=== PATIENT | female | born 1960 | race Caucasian/White ===

== ENCOUNTER 2020-11-17 10:42 | Outpatient (CLI) | payer OTHER, SELFPAY ==
--- NOTE | ~2020-11-17 | DEXA_ITS ---
Bone Density Report Name: Cele Seth Age: 59 Sex: Female Ethnicity: White Date of : 1960 Indication: postmenopausal; height loss; cancer; hysterectomy; Referring Provider: Kingsley, Amy Carbone Study: Bone densitometry was performed. Exam Date: November 17, 2020 Accession number: [id number] Bone Density: Region BMD T-score Z-score Classification AP Spine (L2, L3, L4) 0.712 -3.3 -1.8 Osteoporosis Femoral Neck (Left) 0.641 -1.9 -0.6 Osteopenia Total Hip (Left) 0.808 -1.1 -0.1 Osteopenia Total Hip Bilateral Avg 0.800 -1.2 -0.2 Osteopenia Femoral Neck (Right) 0.607 -2.2 -0.9 Osteopenia Total Hip (Right) 0.790 -1.2 -0.3 Osteopenia World Health Organization criteria for BMD impression classify patients as: Normal (T-score at or above -1.0), Osteopenia (T-score between -1.0 and -2.5), or Osteoporosis (T-score at or below -2.5). 10-year Fracture Risk: FRAX not reported because: Some T-score for Spine Total or Hip Total or Femoral Neck at or below -2.5 Clinical Information Provided by Patient: Has used the following medications: Vitamin D, Calcium Has the following medical conditions: Cancer, Hysterectomy Patient maximum height was 62.5 Menopause Age: 51 No regular weight bearing exercise Does not regularly consume dairy products Drinks caffeinated beverages Onset of menses at age 14 Number of children 3 Impression: The patient has osteoporosis, based on the Total Spine T-score. Discussion: INCREASED RISK OF FRACTURE. BONE DENSITY IS UNDESIRABLY LOW AT ONE OR MORE SKELETAL SITES, CONSISTENT WITH POSTMENOPAUSAL OSTEOPOROSIS. This patient's lowest T-score meets the World Health Organization's (WHO) criteria for osteoporosis at one or more sites (T-score -2.5 or below). In untreated patients, the risk of osteoporotic fracture increases approximately two-fold for each 1.0 SD decrease in T-score. Low bone density is not the only risk factor for fracture; also consider factors such as patient's age, frailty or poor health, risk of falling, risk of injury, previous osteoporotic fracture, family history of osteoporosis, cigarette smoking, low body weight, etc. Not everyone with low bone mineral density has osteoporosis; osteomalacia and other metabolic bone disorders should also be considered. Patients who have osteoporosis should be evaluated for specific diseases and conditions (secondary causes) that may cause or contribute to bone loss. The [place] [employer] (AACE) and National Osteoporosis Foundation (NOF) recommend pharmacologic intervention for all postmenopausal women whose T-score is in this range. The patient should follow a healthful lifestyle (good nutrition with adequate calcium and vitamin D, and appropriate weight-bearing exercise). Follow-Up: Consider a repeat BMD
== END 2020-11-17 10:43 | disposition home or self-care (01) ==
LOC: ANHIMG 10:47
PROVIDERS: PCP Family Medicine; Visit Provider Nurse Practitioner Obstetrics & Gynecology
DX: Z78.0 Asymptomatic menopausal state (principal); M85.89 Other specified disorders of bone density and structure, multiple sites
CPT/HCPCS: 77080

== ENCOUNTER 2023-01-01 00:46 | Day surgery (SDC) | payer OTHER, SELFPAY ==
[2022-12-23 14:34] VITALS: BMI 27.5
--- NOTE | 2022-12-30 09:52 | SUR.PREOP ---
Patient called regarding upcoming procedure. Reviewed preop instructions, appointment times, and procedure prep.
[2023-01-01 09:38] VITALS: BP 144/86; PULSE 70; RESP 16; TEMP 36.2; O2SAT 99
[2023-01-01] MEDS: LACTATED RINGERS 1,000 ML 150 ML IV CONT (09:41)
--- NOTE | 2023-01-01 10:30 | PM.HPGS ---
History of Present Illness History of Present Illness Consent: Risks, benefits, and alternatives have been discussed and questions answered. Patient agrees to proceed with procedure. Chief complaint: neoplasm screening Narrative: Cele Seth is a 62 year old female here for screening colonoscopy, last one 10 years ago Review of Systems Constitutional: Constitutional: Denies headache(s) and Denies weakness Eyes: Eyes: Denies blurry vision ENT: Reports Normal hearing present, Denies headache(s) and Denies neck pain Cardiovascular: Cardiovascular: Denies chest pain and Denies dyspnea Respiratory: Respiratory: Denies dyspnea Gastrointestinal: Gastrointestinal: Reports no additional gastrointestinal complaints Genitourinary: Genitourinary: Denies dysuria Musculoskeletal: Musculoskeletal: Denies neck pain Integumentary/Breasts: Skin/Breast: Denies dry skin Neurologic: Reports Normal hearing present, Denies headache(s) and Denies weakness Psychiatric: Psychiatric: Denies anxiety Endocrine: Endocrine: Denies change in body appearance Hematologic/Lymphatic: Hematologic/Lymphatic: Denies easy bleeding Allergic/Immunologic: Allergic/Immunologic: Denies urticaria [facility] Past Medical History Medical History (Updated 01/01/23 @ 10:30 by Feliz Boyle MD) Colon cancer screening Family History Family History (System 09/24/21 @ 12:17 by Prosper Feliz) Father Family history of diabetes mellitus in first degree relative Mother Family history of diabetes mellitus in first degree relative Other Family history of cardiovascular disease Hypertension Social History Social History (System 09/24/21 @ 12:17 by Prosper Feliz) Smoking status: Never smoker Alcohol intake: current Substance use type: does not use Living arrangements: other Meds Home Medications and Allergies Home Medications Medication Instructions Recorded Confirmed Type atorvastatin 20 mg tablet 20 mg PO DAILY 12/23/22 01/01/23 History hydrochlorothiazide 12.5 mg capsule 12.5 mg PO DAILY 12/23/22 01/01/23 History Allergies Allergy/AdvReac Type Severity Reaction Status Date / Time nitrofurantoin AdvReac Dizziness Verified 01/01/23 09:36 Vital Signs Vital Signs - 24 hr 01/01/23 09:38 Temperature 97.2 F L Pulse Rate 70 Respiratory Rate 16 Blood Pressure 144/86 H Pulse Oximetry 99 Oxygen Delivery Room Air Exam Const: General: comfortable and no acute distress HENMT: Face/Nose/Sinus: Normal nares present Eyes: General: appearance normal, both eyes and all related structures Neck: Neck: no JVD Resp: Auscultation: clear to auscultation bilaterally Cardio: Rate: regular rate Rhythm: regular rhythm GI: Inspection: non-distended GI Palp: Yes Soft to palpation Skin: General skin exam: normal color Neuro: General: gait normal Speech: normal speech Extrem: General: normal to inspection Psych: Mental Status: mental status grossly normal Assessment and Plan Assessment and plan (1) Colon cancer screening: Code(s): Z12.11 - Encounter for screening for malignant neoplasm of colon Status: Acute Assessment and Plan: colonoscopy
--- NOTE | 2023-01-01 10:46 | WPDANESEPPF ---
Anes - Initial Pre Proc Eval Procedure: Operation Date: 01/01/23 11:00 Proposed Procedures p Screening Colonoscopy - Feliz Boyle MD Date/Time: 01/01/23 10:46 Surgeon: Feliz Boyle MD Pre Op Diagnosis: neoplasm screening Patient Data Age: 62 Gender: F Height: 1.55 m Weight: 63.9 kg Last Vital Signs Temp 97.2 F L 01/01/23 09:38 Pulse 70 01/01/23 09:38 Resp 16 01/01/23 09:38 BP 144/86 H 01/01/23 09:38 Pulse Ox 99 01/01/23 09:38 O2 Del Method Room Air 01/01/23 09:38 Allergies Allergy/AdvReac Type Severity Reaction Status Date / Time nitrofurantoin AdvReac Dizziness Verified 01/01/23 09:36 Home Medications Medication Instructions Recorded Confirmed Type atorvastatin 20 mg tablet 20 mg PO DAILY 12/23/22 01/01/23 History hydrochlorothiazide 12.5 mg capsule 12.5 mg PO DAILY 12/23/22 01/01/23 History Patient hx anesthesia problems: none Family hx anesthesia problems: none Results Review: All pre-operative results and documents have been reviewed as part of the pre-operative evaluation. [facility] Past Medical History Medical History (Updated 01/01/23 @ 10:30 by Feliz Boyle MD) Colon cancer screening Family History Family History (System 09/24/21 @ 12:17 by Prosper Feliz) Father Family history of diabetes mellitus in first degree relative Mother Family history of diabetes mellitus in first degree relative Other Family history of cardiovascular disease Hypertension Social History Social History (System 09/24/21 @ 12:17 by Prosper Feliz) Smoking status: Never smoker Alcohol intake: current Substance use type: does not use Living arrangements: other Anes - Eval Final PreProcedure Day of Procedure 01/01/23 10:46 Patient weight: normal Heart: regular rate and rhythm Lungs: clear to auscultation Airway: Mallampati scale class II Neurological: alert and oriented Last oral intake: >/= 8 hours ASA classification: III Emergent: no Anesthetic plan: proceed Anesthesia type and monitoring: general GIVS and standard monitoring Results Review: All pre-operative results and documents have been reviewed as part of the pre-operative evaluation. Informed Consent: The patient's anesthetic plan and its attendant risks and benefits were discussed with the patient/family/POA. Questions were solicited and answers provided to the satisfaction of the patient/family/POA.
[2023-01-01 11:05] VITALS: BP 112/57; PULSE 74; RESP 20; O2SAT 99
[2023-01-01 11:15] VITALS: BP 115/57; PULSE 66; RESP 17; O2SAT 99
[2023-01-01 11:23] VITALS: BP 124/71; PULSE 65; RESP 14; O2SAT 100
== END 2023-01-01 11:37 | disposition home or self-care (01) ==
PROVIDERS: PCP Nurse Practitioner Family; Visit Provider Internal Medicine Gastroenterology
PROC: 0DJD8ZZ Inspection of Lower Intestinal Tract, Via Natural or Artificial Opening Endoscopic (ICD-10-PCS; CPT 45378; principal; 2023-01-01 11:00)
DX: Z12.11 Encounter for screening for malignant neoplasm of colon (principal); D12.2 Benign neoplasm of ascending colon; D12.3 Benign neoplasm of transverse colon; K63.5 Polyp of colon; K64.8 Other hemorrhoids
CPT/HCPCS: 45385; 88305; J2704; J7120

== ENCOUNTER 2024-03-30 12:43 | Outpatient (CLI) | payer OTHER, SELFPAY ==
--- NOTE | ~2024-03-30 | DEXA_ITS ---
Bone Density Report Name: ROMEO DESAI Age: 63 Sex: Female Ethnicity: White Date of : 1960 Indication: osteopenia; height loss; cancer; hysterectomy; Referring Provider: MANOLO, ABDON Mckinney Study: Bone densitometry was performed. Exam Date: March 30, 2024 Accession number: [id number] Bone Density: Region BMD T-score Z-score Classification AP Spine(L1-L4) 0.683 -3.3 -1.6 Osteoporosis Femoral Neck (Left) 0.622 -2.0 -0.6 Osteopenia Total Hip (Left) 0.785 -1.3 -0.1 Osteopenia Femoral Neck (Right) 0.592 -2.3 -0.8 Osteopenia Total Hip (Right) 0.788 -1.3 -0.1 Osteopenia Total Hip Mean 0.786 -1.3 -0.1 Osteopenia World Health Organization criteria for BMD impression classify patients as: Normal (T-score at or above -1.0), Osteopenia (T-score between -1.0 and -2.5), or Osteoporosis (T-score at or below -2.5). 10-year Fracture Risk: FRAX not reported because: Some T-score for Spine Total or Hip Total or Femoral Neck at or below -2.5 Previous Exams: Region Exam Age BMD T-score BMD Change BMD Change Date g/cm2 vs Baseline vs Previous Total Hip(Left) 03/30/2024 63 0.785 -1.3 -0.023 (-2.8%) -0.023 (-2.8%) 11/17/2020 59 0.808 -1.1 Total Hip(Right) 03/30/2024 63 0.788 -1.3 -0.003 (-0.3%) -0.003 (-0.3%) 11/17/2020 59 0.790 -1.2 *Denotes significance at 95% confidence level, LSC for Total Hip = 0.027 g/cm2 # Denotes dissimilar scan types or analysis methods Clinical Information Provided by Patient: Has used the following medications: Fosamax (i.e. alendronate), Vitamin D, Calcium Has the following medical conditions: Cancer, Hysterectomy Patient maximum height was 62.5 Menopause Age: 51 Drinks caffeinated beverages Onset of menses at age 14 Number of children 3 Impression: The patient has osteoporosis, based on the Total Spine T-score. No significant bone loss was observed. Discussion: INCREASED RISK OF FRACTURE. BONE DENSITY IS UNDESIRABLY LOW AT ONE OR MORE SKELETAL SITES, CONSISTENT WITH POSTMENOPAUSAL OSTEOPOROSIS. This patient's lowest T-score meets the World Health Organization's (WHO) criteria for osteoporosis at one or more sites (T-score -2.5 or below). In untreated patients, the risk of osteoporotic fracture increases approximately two-fold for each 1.0 SD decrease in T-score. Low bone density is not the only risk factor for fracture; also consider factors such as patient's age, frailty or poor health, risk of falling, risk of injury, previous osteoporotic fracture, family history of osteoporosis, cigarette smoking, low body weight, etc. Not everyone with low bone mineral density has osteoporosis; osteomalacia and other metabolic bone disorders should also be considered. Patients who have osteoporosis should be evaluated for specific diseases and conditions (secondary causes) that may cause or contribute to bone loss. The [place] Association of Clinical Endocrinologists (AACE) and National Osteoporosis Foundation (NOF) recommend pharmacologic intervention for all postmenopausal women whose T-score is in this range. The patient should follow a healthful lifestyle (good nutrition with adequate calcium and vitamin D, and appropriate weight-bearing exercise). Follow-Up: Consider a repeat BMD and Vertebral Fracture Assessment (VFA) exam in 2 years or sooner if medically necessary, to reassess this patient's status. Reported by: LEYDI on 03/30/2024 1:28:00 PM. Reviewed, dictated and finalized at location A. [facility]
--- OUTSIDE RECORDS SUMMARY | 2024-03-30 12:53 | XMS_ITS | Data Portability ---
Author Organization MIKAL Amber ISIDRO Address [address] [place] [address] Care Team Providers Care Art Editor Name Role Phone SHAY WESTFALL Primary Care Provider Assessment No assessment recorded. Plan of Treatment Reminders Order Date Submit Date Provider Last Modified By Organization Details Last Modified Time Details Appointments ANY 15 2024 01:45P M Shay Westfall PBX INSTALLER-Yaakov Not available Not available Not available Lab HbA1c (hemoglob in A1c), blood 2022 023 [email or web address] In-Office Order, Internal Use Only DO Not Attach Compendium DO Not Attach Compendium, Do Not Delete/merge, [id number] 11/12/2022 16:44:31 TSH, ultra-sen sitive, serum 2022 023 [facility], [address], [address], [place], [address], 11/16/2022 08:21:12 CMP, serum or plasma 2022 023 [facility], [address], [address], [place], [address], 11/14/2022 21:07:53 lipid panel, serum 2022 023 [facility], [address], [place], [address], 11/14/2022 21:07:52 HbA1c (hemoglob in A1c), blood 2023 024 [email or web address] In-Office Order, Internal Use Only DO Not Attach Compendium DO Not Attach Compendium, Do Not Delete/merge, [id number] 10/02/2023 22:13:42 lipid panel, serum 2023 024 [facility], [address] [facility], [address], [place], [address], 02/10/2024 23:07:32 CMP, serum or plasma 2023 024 [facility], [address] [facility], [address], [place], [address], 02/10/2024 23:07:33 Referral gastroent erologist referral - due for screening colonosco py 2022 023 [facility], [id number], [place], [address], 04/30/2023 09:42:07 Procedures None recorded. Surgeries None recorded. Imaging US, gallbladd er 2022 023 [facility] Patient Access Centralized Scheduling, Centralized Scheduling, [address] [facility], [place], [address], 11/15/2022 01:42:12 Medication Orders lisinopri l 10 mg-hydroc hlorothia zide 12.5 mg tablet [address] [facility], [address] [place] [address], [address], 05/13/2023 09:40:20 lisinopri l 10 mg-hydroc hlorothia zide 12.5 mg tablet [address] [facility], [address] [facility] [address] [place] [address], [address], 06/25/2023 10:29:33 rosuvasta tin 20 mg tablet 2023 024 [facility] 435, [address], [address], 10/02/2023 17:46:06 Zetia 10 mg tablet 2023 024 [facility], [address] [place] [address], [address], 10/02/2023 17:46:08 polymyxin B sulfate 10,000 unit-trim ethoprim 1 mg/mL eye drops 2024 025 [facility] 435, [address] [place] [address], [address], 03/08/2024 15:54:49 amoxicill in 875 mg-potass ium clavulana te 125 mg tablet 2024 025 [place] [address], [address] [place] [address], [address], 03/08/2024 15:54:52 Systane Nighttime 94 %-3 % eye ointment 2024 025 [place] [address], [address] [place] [address], [address], 03/08/2024 15:54:52 Patient TargetsNo targets recorded. Patient Instructions Encounter Date Encounter Id Patient Instructions Last Modified By Organization Details Last Modified Time 11/12/2022 [id number] A healthy lifestyle: care instructions Not available 11/12/2022 16:44:26 05/12/2023 [id number] A healthy lifestyle: care instructions Not available 05/13/2023 09:40:45 06/24/2023 [id number] A healthy lifestyle: care instructions Not available 06/25/2023 10:30:19 03/08/2024 [id number] A healthy lifestyle: care instructions Not available 03/10/2024 15:45:46 pinkeye: care instructions Not available 03/08/2024 15:54:36 Acute Sinusitis: Care Instructions Not available 03/08/2024 15:54:36 dry eyes: care instructions Not available 03/08/2024 15:54:36 Reason for Referral Etl Manager Referral for Screening for malignant neoplasm of colon due for screening colonoscopy Referring Physician: Shay Westfall, Java Lead Developer, Encounter Date: 11/12/2022 Results Created Date Observation Date Name Description Value Unit Range Abnormal Flag Note LastModifiedBy Organization Detail LastModifiedTime 11/05/1911/08/2022 URINE CULTU RE,CO MPREH ENSIV E urine culture,comp rehensive Final report Not Available [facility] ([facility]) [address] [facility], [place], [address], 11/09/2022 00:07:21 11/05/1911/08/2022 URINE CULTU RE,CO MPREH ENSIV E result 1 Commen t Mixed uroge nital jas 3,000 Colon ies/m L Not Available [facility] ([facility]) [address] [facility], [place], [address], 11/09/2022 00:07:21 11/05/1911/04/2022 urina lysis , dipst ick Leukocytes Trace Not Available In-Offi ce Order Internal Use Only DO Not Attach Compendium DO Not Attach Compendium, Do Not Delete/merge, [id number] 11/04/2022 16:42:52 11/05/1911/04/2022 urina lysis , dipst ick Nitrite negati ve Not Available In-Office Order Internal Use Only DO Not Attach Compendium DO Not Attach Compendium, Do Not Delete/merge, [id number] 11/04/2022 16:42:52 11/05/1911/04/2022 urina lysis , dipst ick Urobilinogen .2 Not Available In-Of fice Order Internal Use Only DO Not Attach Compendium DO Not Attach Compendium, Do Not Delete/merge, [id number] 11/04/2022 16:42:52 11/05/19 23 11/04/2022 urina lysis , dipst ick Protein 30 Not Available In-Office Order Internal Use Only DO Not Attach Compendium DO Not Attach Compendium, Do Not Delete/merge, 11/04/2022 16:42:52 11/05/19 23 11/04/2022 urina lysis , dipst ick pH 6.0 Not Available In-Office Order Internal Use Only DO Not Attach Compendium DO Not Attach Compendium, Do Not Delete/merge, 11/04/2022 16:42:52 11/05/19 23 11/04/2022 urina lysis , dipst ick Blood Modera te Not Available In-Office Order Internal Use Only DO Not Attach Compendium DO Not Attach Compendium, Do Not Delete/merge, 11/04/2022 16:42:52 11/05/19 23 11/04/2022 urina lysis , dipst ick Specific [place] 1.020 Not Available In-Off ice Order Internal Use Only DO Not Attach Compendium DO Not Attach Compendium, Do Not Delete/merge, 11/04/2022 16:42:52 11/05/19 23 11/04/2022 urina lysis , dipst ick Ketone Negati ve Not Available In-Office Order Internal Use Only DO Not Attach Compendium DO Not Attach Compendium, Do Not Delete/merge, 11/04/2022 16:42:52 11/05/1911/04/2022 urina lysis , dipst ick Bilirubin Negati ve Not Available In-Office Order Internal Use Only DO Not Attach Compendium DO Not Attach Compendium, Do Not Delete/merge, 11/04/2022 16:42:52 11/05/19 23 11/04/2022 urina lysis , dipst ick Glucose Negati ve Not Available In-Office Order Internal Use Only DO Not Attach Compendium DO Not Attach Compendium, Do Not Delete/merge, 11/04/2022 16:42:52 11/05/19 23 11/04/2022 urina lysis , dipst ick Appearance Slight ly Cloudy Not Available In-Office Order Internal Use Only DO Not Attach Compendium DO Not Attach Compendium, Do Not Delete/merge, [id number] 11/04/2022 16:42:52 11/05/1911/04/2022 urina lysis , dipst ick Color Yellow Not Available In-Office Order Internal Use Only DO Not Attach Compendium DO Not Attach Compendium, Do Not Delete/merge, [id number] 11/04/2022 16:42:52 11/13/1911/12/2022 HbA1c (hemo globi n A1c), blood HbA1c Not Available In-Office Order Internal Use Only DO Not Attach Compendium DO Not Attach Compendium, Do Not Delete/merge, 11/12/2022 16:44:17 11/15/1911/14/2022 LIPID PANEL cholesterol, total 240 mg/dL 100-19 9 above high normal Not Available [facility] Department [address] [place] [address], [address], 11/14/2022 21:07:52 11/15/1911/14/2022 LIPID PANEL triglyceride s 121 mg/dL 0-149 Not Available [facility] Department [address] [place], [address], 11/14/2022 21:07:52 11/15/1911/14/2022 LIPID PANEL HDL cholesterol 47 mg/dL 40-999 Not Available [facility] Department [address] [place], [address], 11/14/2022 21:07:52 11/15/1911/14/2022 LIPID PANEL VLDL cholesterol asuncion 24 mg/dL 5-40 Not Available [facility] Department [address] [place], [address], 11/14/2022 21:07:52 11/15/1911/14/2022 LIPID PANEL LDL chol calc ([facility]) 186 mg/dL 0-99 above high normal Not Available [facility] [address] [place], [address], 11/14/2022 21:07:52 11/15/19 23 11/14/2022 COMP. METAB OLIC PANEL (14) glucose 103 mg/dL 70-99 above high normal Not Available [facility] Department [address] [place], [address], 11/14/2022 21:07:53 11/15/19 23 11/14/2022 COMP. METAB OLIC PANEL (14) BUN 24 mg/dL 8-27 Not Available [facility] Department [address] [place], [address], 11/14/2022 21:07:53 11/15/19 23 11/14/2022 COMP. METAB OLIC PANEL (14) creatinine 0.68 mg/dL 0.76-1 .27 below low normal Not Available [facility] Department [address] [place] [address], [address], 11/14/2022 21:07:53 11/15/19 23 11/14/2022 COMP. METAB OLIC PANEL (14) eGFR 98 >=60 Units for eGFR value s are mL/mi n/1.7 3 The eGFR Calcu latio n has not been valid ated for patie nts under the age of 18. If test resul ts are displ ayed for a patie nt under the age of 18, disre nando that value . Not Available [facility] Department [address] [place], [address], 11/14/2022 21:07:53 11/15/19 23 11/14/2022 COMP. METAB OLIC PANEL (14) BUN/creatini ne ratio 35 10-28 above high normal Not Available [facility] Department [address] [place], [address], 11/14/2022 21:07:53 11/15/19 23 11/14/2022 COMP. METAB OLIC PANEL (14) sodium 145 mmol/ L 134-14 4 above high normal Not Available [facility] Department [address] [place], [address], 11/14/2022 21:07:53 11/15/19 23 11/14/2022 COMP. METAB OLIC PANEL (14) potassium 4.4 mmol/ L 3.5-5. 2 Not Available [facility] [address] [place], [address], 11/14/2022 21:07:53 11/15/19 23 11/14/2022 COMP. METAB OLIC PANEL (14) chloride 106 mmol/ L 96-106 Not Available [facility] Department [address] [place], [address], 11/14/2022 21:07:53 11/15/19 23 11/14/2022 COMP. METAB OLIC PANEL (14) carbon dioxide, total 30 mmol/ L 20-29 above high normal Not Available [facility] Department [address] [place] [address], [address], 11/14/2022 21:07:53 11/15/19 23 11/14/2022 COMP. METAB OLIC PANEL (14) calcium 9.2 mg/dL 8.7-10 .3 Not Available [facility] Department [address] [place], [address], 11/14/2022 21:07:53 11/15/19 23 11/14/2022 COMP. METAB OLIC PANEL (14) protein, total 6.5 g/dL 6.0-8. 5 Not Available [facility] Department [address] [place], [address], 11/14/2022 21:07:53 11/15/19 23 11/14/2022 COMP. METAB OLIC PANEL (14) albumin 4.3 g/dL 3.8-4. 8 Not Available [facility] Department [address] [place], [address], 11/14/2022 21:07:53 11/15/19 23 11/14/2022 COMP. METAB OLIC PANEL (14) globulin, total 2.2 g/dL 1.5-4. 5 Not Available [facility] Department [address] [place] [address], [address], 11/14/2022 21:07:53 11/15/19 23 11/14/2022 COMP. METAB OLIC PANEL (14) A/G ratio 2.0 1.2-2. 2 Not Available [facility] Department [address] [place] [address], [address], 11/14/2022 21:07:53 11/15/19 23 11/14/2022 COMP. METAB OLIC PANEL (14) bilirubin, total 0.3 mg/dL 0.0-1. 2 Not Available [facility] Department [address] [place] [address], [address], 11/14/2022 21:07:53 11/15/19 23 11/14/2022 COMP. METAB OLIC PANEL (14) alkaline phosphatase 89 IU/L 44-121 Not Available [facility] Department [address] [place] [address], [address], 11/14/2022 21:07:53 11/15/19 23 11/14/2022 COMP. METAB OLIC PANEL (14) AST (SGOT) 20 IU/L 0-40 Not Available [facility] Department [address] [place] [address], [address], 11/14/2022 21:07:53 11/15/19 23 11/14/2022 COMP. METAB OLIC PANEL (14) ALT (SGPT) 34 IU/L 0-32 above high normal Not Available [facility] Department [address] [place] [address], [address], 11/14/2022 21:07:53 11/15/19 23 11/16/2022 TSH RFX ON ABNOR MAL TO FREE T4 TSH 2.680 uIU/m L 0.450- 4.500 Not Available [facility] ([facility]) [address] [facility], [place], [address], 11/16/2022 08:21:12 06/12/19 24 06/12/2023 LIPID PANEL cholesterol, total 288 mg/dL 100-19 9 above high normal Not Available [facility] Department [address] [place], [address], 06/12/2023 20:09:47 06/12/19 24 06/12/2023 LIPID PANEL triglyceride s 251 mg/dL 0-149 above high normal Not Available [facility] Department [address] [place], [address], 06/12/2023 20:09:47 06/12/19 24 06/12/2023 LIPID PANEL HDL cholesterol 53 mg/dL 40-999 Not Available [facility] Department [address] [place], [address], 06/12/2023 20:09:47 06/12/19 24 06/12/2023 LIPID PANEL VLDL cholesterol asuncion 50 mg/dL 5-40 above high normal Not Available [facility] Department [address] [place], [address], 06/12/2023 20:09:47 06/12/19 24 06/12/2023 LIPID PANEL LDL chol calc ([facility]) 216 mg/dL 0-99 above high normal Not Available [facility] Department [address] [place], [address], 06/12/2023 20:09:47 09/15/19 24 09/15/2023 LIPID PANEL cholesterol, total 263 mg/dL 100-19 9 above high normal Not Available [facility] Department [address] [place], [address], 09/15/2023 19:08:53 09/15/19 24 09/15/2023 LIPID PANEL triglyceride s 136 mg/dL 0-149 Not Available [facility] Department [address] [place], [address], 09/15/2023 19:08:53 09/15/19 24 09/15/2023 LIPID PANEL HDL cholesterol 51 mg/dL 40-999 Not Available [facility] Department [address] [place] [address], [address], 09/15/2023 19:08:53 09/15/19 24 09/15/2023 LIPID PANEL VLDL cholesterol asuncion 27 mg/dL 5-40 Not Available [facility] Department [address] [place] [address], [address], 09/15/2023 19:08:53 09/15/19 24 09/15/2023 LIPID PANEL LDL chol calc ([facility]) 204 mg/dL 0-99 above high normal Not Available [facility] Department [address] [place] [address], [address], 09/15/2023 19:08:53 09/15/19 24 09/15/2023 COMP. METAB OLIC PANEL (14) glucose 108 mg/dL 70-99 above high normal Not Available [facility] Department [address] [place] [address], [address], 09/15/2023 19:08:53 09/15/19 24 09/15/2023 COMP. METAB OLIC PANEL (14) BUN 17 mg/dL 8-27 Not Available [facility] Department [address] [place] [address], [address], 09/15/2023 19:08:53 09/15/19 24 09/15/2023 COMP. METAB OLIC PANEL (14) creatinine 0.50 mg/dL 0.76-1 .27 below low normal Not Available [facility] Department [address] [place] [address], [address], 09/15/2023 19:08:53 09/15/19 24 09/15/2023 COMP. METAB OLIC PANEL (14) eGFR 105 >=60 Units for eGFR value s are mL/mi n/1.7 3 The eGFR Calcu latio n has not been valid ated for patie nts under the age of 18. If test resul ts are displ ayed for a patie nt under the age of 18, disre nando that value . Not Available [facility] Department [address] [place] [address], [address], 09/15/2023 19:08:53 09/15/19 24 09/15/2023 COMP. METAB OLIC PANEL (14) BUN/creatini ne ratio 34 10-28 above high normal Not Available [facility] Department [address] [place] [address], [address], 09/15/2023 19:08:53 09/15/19 24 09/15/2023 COMP. METAB OLIC PANEL (14) sodium 140 mmol/ L 134-14 4 Not Available [facility] Department [address] [place] [address], [address], 09/15/2023 19:08:53 09/15/19 24 09/15/2023 COMP. METAB OLIC PANEL (14) potassium 4.1 mmol/ L 3.5-5. 2 Not Available [facility] Department [address] [place] [address], [address], 09/15/2023 19:08:53 09/15/19 24 09/15/2023 COMP. METAB OLIC PANEL (14) chloride 102 mmol/ L 96-106 Not Available [facility] Department [address] [place] [address], [address], 09/15/2023 19:08:53 09/15/19 24 09/15/2023 COMP. METAB OLIC PANEL (14) carbon dioxide, total 27 mmol/ L 20-29 Not Available [facility] Department [address] [place] [address], [address], 09/15/2023 19:08:53 09/15/19 24 09/15/2023 COMP. METAB OLIC PANEL (14) calcium 9.5 mg/dL 8.7-10 .3 Not Available [facility] Department [address] [place] [address], [address], 09/15/2023 19:08:53 09/15/19 24 09/15/2023 COMP. METAB OLIC PANEL (14) protein, total 6.7 g/dL 6.0-8. 5 Not Available [facility] Department [address] [place], [address], 09/15/2023 19:08:53 09/15/19 24 09/15/2023 COMP. METAB OLIC PANEL (14) albumin 4.5 g/dL 3.8-4. 8 Not Available [facility] Department [address] [place] [address], [address], 09/15/2023 19:08:53 09/15/19 24 09/15/2023 COMP. METAB OLIC PANEL (14) globulin, total 2.2 g/dL 1.5-4. 5 Not Available [facility] Department [address] [place] [address], [address], 09/15/2023 19:08:53 09/15/19 24 09/15/2023 COMP. METAB OLIC PANEL (14) A/G ratio 2.0 1.2-2. 2 Not Available [facility] Department [address] [place], [address], 09/15/2023 19:08:53 09/15/19 24 09/15/2023 COMP. METAB OLIC PANEL (14) bilirubin, total 0.7 mg/dL 0.0-1. 2 Not Available [facility] Department [address] [place], [address], 09/15/2023 19:08:53 09/15/19 24 09/15/2023 COMP. METAB OLIC PANEL (14) alkaline phosphatase 102 IU/L 44-121 Not Available [facility] Department [address] [place], [address], 09/15/2023 19:08:53 09/15/19 24 09/15/2023 COMP. METAB OLIC PANEL (14) AST (SGOT) 18 IU/L 0-40 Not Available [facility] Department [address] [place], [address], 09/15/2023 19:08:53 09/15/19 24 09/15/2023 COMP. METAB OLIC PANEL (14) ALT (SGPT) 20 IU/L 0-32 Not Available [facility] Department [address] [place], [address], 09/15/2023 19:08:53 10/02/19 24 10/02/2023 HbA1c (hemo globi n A1c), blood HbA1c 5.5 Not Available In-Office Order Internal Use Only DO Not Attach Compendium DO Not Attach Compendium, Do Not Delete/merge, [id number] 10/02/2023 22:13:23 02/10/20 24 02/10/2024 LIPID PANEL cholesterol, total 125 mg/dL 100-19 9 Not Available [facility] Department [address] [place] [address], [address], 02/10/2024 23:07:32 02/10/20 24 02/10/2024 LIPID PANEL triglyceride s 130 mg/dL 0-149 Not Available [facility] Department [address] [place], [address], 02/10/2024 23:07:32 02/10/20 24 02/10/2024 LIPID PANEL HDL cholesterol 49 mg/dL 40-999 Not Available [facility] Department [address] [place], [address], 02/10/2024 23:07:32 02/10/20 24 02/10/2024 LIPID PANEL VLDL cholesterol asuncion 26 mg/dL 5-40 Not Available [facility] Department [address] [place] [address], [address], 02/10/2024 23:07:32 02/10/20 24 02/10/2024 LIPID PANEL LDL chol calc ([facility]) 69 mg/dL 0-99 Not Available [facility] Department [address] [place], [address], 02/10/2024 23:07:32 02/10/20 24 02/10/2024 COMP. METAB OLIC PANEL (14) glucose 109 mg/dL 70-99 above high normal Not Available [facility] Department [address] [place] [address], [address], 02/10/2024 23:07:33 02/10/20 24 02/10/2024 COMP. METAB OLIC PANEL (14) BUN 17 mg/dL 8-27 Not Available [facility] Department [address] [place] [address], [address], 02/10/2024 23:07:33 02/10/20 24 02/10/2024 COMP. METAB OLIC PANEL (14) creatinine 0.59 mg/dL 0.76-1 .27 below low normal Not Available [facility] Department [address] [place] [address], [address], 02/10/2024 23:07:33 02/10/20 24 02/10/2024 COMP. METAB OLIC PANEL (14) eGFR 101 >=60 Units for eGFR value s are mL/mi n/1.7 3 The eGFR Calcu latio n has not been valid ated for patie nts under the age of 18. If test resul ts are displ ayed for a patie nt under the age of 18, disre nando that value . Not Available [facility] Department [address] [place], [address], 02/10/2024 23:07:33 02/10/20 24 02/10/2024 COMP. METAB OLIC PANEL (14) BUN/creatini ne ratio 29 10-28 above high normal Not Available [facility] Department [address] [place], [address], 02/10/2024 23:07:33 02/10/20 24 02/10/2024 COMP. METAB OLIC PANEL (14) sodium 140 mmol/ L 134-14 4 Not Available [facility] Department [address] [place], [address], 02/10/2024 23:07:33 02/10/20 24 02/10/2024 COMP. METAB OLIC PANEL (14) potassium 4.1 mmol/ L 3.5-5. 2 Not Available [facility] Department [address] [place], [address], 02/10/2024 23:07:33 02/10/20 24 02/10/2024 COMP. METAB OLIC PANEL (14) chloride 103 mmol/ L 96-106 Not Available [facility] Department [address] [place], [address], 02/10/2024 23:07:33 02/10/20 24 02/10/2024 COMP. METAB OLIC PANEL (14) carbon dioxide, total 26 mmol/ L 20-29 Not Available [facility] Department [address] [place], [address], 02/10/2024 23:07:33 02/10/20 24 02/10/2024 COMP. METAB OLIC PANEL (14) calcium 9.2 mg/dL 8.7-10 .3 Not Available [facility] Department [address] [place], [address], 02/10/2024 23:07:33 02/10/20 24 02/10/2024 COMP. METAB OLIC PANEL (14) protein, total 6.4 g/dL 6.0-8. 5 Not Available [facility] Department [address] [place], [address], 02/10/2024 23:07:33 02/10/20 24 02/10/2024 COMP. METAB OLIC PANEL (14) albumin 4.3 g/dL 3.8-4. 8 Not Available [facility] Department [address] [place], [address], 02/10/2024 23:07:33 02/10/20 24 02/10/2024 COMP. METAB OLIC PANEL (14) globulin, total 2.1 g/dL 1.5-4. 5 Not Available [facility] Department [address] [place], [address], 02/10/2024 23:07:33 02/10/20 24 02/10/2024 COMP. METAB OLIC PANEL (14) A/G ratio 2.0 1.2-2. 2 Not Available [facility] Department [address] [place], [address], 02/10/2024 23:07:33 02/10/20 24 02/10/2024 COMP. METAB OLIC PANEL (14) bilirubin, total 0.4 mg/dL 0.0-1. 2 Not Available [facility] Department [address] [place], [address], 02/10/2024 23:07:33 02/10/20 24 02/10/2024 COMP. METAB OLIC PANEL (14) alkaline phosphatase 76 IU/L 44-121 Not Available [facility] Department [address] [place], [address], 02/10/2024 23:07:33 02/10/20 24 02/10/2024 COMP. METAB OLIC PANEL (14) AST (SGOT) 20 IU/L 0-40 Not Available [facility] Department [address] [place] [address], [address], 02/10/2024 23:07:33 02/10/20 24 02/10/2024 COMP. METAB OLIC PANEL (14) ALT (SGPT) 21 IU/L 0-32 Not Available [facility] Department [address] [place], [address], 02/10/2024 23:07:33 11/13/19 23 11/11/2022 XR, lumbo sacra l spine , 2 or 3 view No observ ation record ed. [address] [facility] [place], [address], 11/12/2022 16:17:02 11/13/1911/11/2022 XR, kidne y + urete r + bladd er No observ ation record ed. [address] Radiology Special Procedures Only [address] [facility] [place], [address], 11/18/2022 17:45:50 11/16/1911/14/2022 US, gallb ladde r No observ ation record ed. [facility] [address] [facility] [place], [address], 11/19/2022 10:22:49 03/08/19 25 03/08/2024 MAMMO , scree sharan, digit al, bilat eral No observ ation record ed. [facility] [address] [place], [address], 03/15/2024 13:50:56 Result Notes None recorded. Problems Name Problem SNOMED Code Status Onset Date Resolution Date Notes Provider Name and Address Organization Details Recorded Time History of malignant neoplasm of breast 251929004 Active 2017 MAYANK Bolden Attn: Carolann garcía,[address] [facility], [place], [address], [place] [facility] 8 10:52:28 History of malignant neoplasm of uterine body 806884748 Active 2017 MAYANK Bolden Attn: Carolann garcía,[address] [facility], [place], [address], [place] 8 10:52:46 Essential hypertensio n 17352938 Active 2018 MAYANK Bolden Attn: Carolann g,[address] [facility] [place], [place], [address], [place] - [facility] 9 10:43:24 Acute upper respiratory infection [id number] Completed 10/06/2017 MAYANK Bolden Attn: Carolann garcía,[address] [facility], [place], [address], [facility] 8 10:52:31 Problem Notes None recorded. Procedures Surgical History Date Name Laterality Status Provider Name and Address Organization Details Recorded Time 10/07/19 18 Cerumen Removal completed MAYANK Bolden Attn: Accounting,2 0[address] [facility], [place], [address], [facility] 10/06/2017 14:15:57 03/18/19 13 Total hysterectomy completed MAYANK Bolden Attn: Accounting,2 0[address] [facility], [place], [address], [facility] 10/06/2017 10:48:54 01/13/20 12 Breast Surgery completed MAYANK oBlden Attn: Accounting,2 041 [facility], [place], [address], [facility] 10/06/2017 10:51:35 12/27/19 11 Breast Surgery completed MAYANK Bolden Attn: Accounting,2 041 [facility], [place], [address], [facility] 10/06/2017 10:51:08 11/21/19 10 Breast Surgery completed MAYANK Bolden Attn: Accounting,2 041 [facility], [place], [address], [facility] 10/06/2017 10:50:33 04/06/19 09 Breast Surgery completed MAYANK Bolden Attn: Accounting,2 041 [facility], [place], [address], [facility] 10/06/2017 10:50:11 12/09/19 08 Breast Surgery completed MAYANK Bolden Attn: Accounting,2 041 [facility], [place], [address], [facility] 10/06/2017 10:49:50 10/29/19 07 Mastectomy completed Shay Holthaus, PBX INSTALLER-C Attn: Accounting,[address], [place], [address], [place] [facility] 10/06/2017 10:47:35 Imaging Results Imaging Date Name Status LastModified by Organiz ation Details LastModified Time 11/11/2022 XR, lumbosacral spine, 2 or 3 view completed [address] [facility] [place], [address], 11/12/2022 16:17:02 11/11/2022 XR, kidney + ureter + bladder completed [address] Radiology Special Procedures Only [address] [facility] [place], [address], 11/18/2022 17:45:50 11/14/2022 US, gallbladder completed [facility] [address] [facility] [place], [address], 11/19/2022 10:22:49 03/08/2024 MAMMO, screening, digital, bilateral completed [facility] [address] [place], [address], 03/15/2024 13:50:56 Procedure Notes None recorded. Medical Equipment None Reported. Allergies Allergen ID Allergen Name Allergen Category Reaction Reaction Severity Criticality Documentation Date Start Date Code Code System Note Provider Name and Address Organization Details Recorded Time 871874 Macrobid medicatio n Not available Not available Not available 11/11/2022 66125 1 RxNorm nause a, dizzi ness, light heade dness , inten se heada ches and fatig ue Not Available Not Available Not Available Medications Name Sig Start Date Stop Date Status Note LastModified by Organization Details LastModified Time atorvasta tin 20 mg tablet TAKE 1 TABLET BY MOUTH ONCE DAILY AT BEDTIME 06/15 completed Patient has not complete d LABS ? 2 letters have been mailed 04/21/23 Not Available Not Available Not Available metronida zole 0.75 % (37.5 mg/5 gram) vaginal gel 11/12 completed Not Available Not Available Not Available Pyridium 200 mg tablet Take 1 tablet every 8 hours by oral route for 2 days. 11/11 completed Not Available Not Available Not Available metronida zole 500 mg tablet 05/23 completed Not Available Not Available Not Available sulfameth oxazole 800 mg-trimet hoprim 160 mg tablet 11/08 completed Not Available Not Available Not Available Macrobid 100 mg capsule Take 1 capsule every 12 hours by oral route for 7 days. 11/11 completed Not Available Not Available Not Available betametha sone acetate and sodium phos 6 mg/mL suspensio n for injection Take 6 mg by injectio n route. 11/12 completed LUC Uribe Not Available Not Available Not Available prednisol one acetate 1 % eye drops,jefferson pension INSTILL 1 DROP INTO LEFT EYE 4 TIMES DAILY FOR 7 DAYS 11/05 completed Not Available Not Available Not Available polymyxin B sulfate 10,000 unit-trim ethoprim 1 mg/mL eye drops INSTILL 1 DROP INTO AFFECTED EYE(S) EVERY 6 HOURS active Not Available Not Available No t Available hydrochlo rothiazid e 12.5 mg capsule Take 1 capsule by mouth once daily in the morning 05/11 completed appt 05/12/23 Not Available Not Available Not Available lisinopri l 10 mg-hydroc hlorothia zide 12.5 mg tablet TAKE 1 TABLET BY MOUTH ONCE DAILY FOR HIGH BLOOD PRESSURE active Not Available Not Available No t Available SSD 1 % topical cream 05/23 completed Not Available Not Available Not Available ketorolac 60 mg/2 mL intramusc ular solution Inject 60 mg every 6 hours by intramus cular route. 11/12 completed LUC Uribe Not Available Not Available Not Available amoxicill in 875 mg-potass ium clavulana te 125 mg tablet TAKE 1 TABLET BY MOUTH EVERY 12 HOURS active Not Available Not Available No t Available ezetimibe 10 mg tablet TAKE 1 TABLET BY MOUTH ONCE DAILY active Not Available Not Available No t Available cyclobenz aprine 5 mg tablet Take 1 tablet every 8 hours by oral route as needed for 7 days. 03/08 completed Not Available Not Available Not Available rosuvasta tin 20 mg tablet Take 1 tablet every day by oral route at bedtime for 90 days. 2023 active Not Available Not Available Not Avai lable Systane Nighttime 94 %-3 % eye ointment Apply 1 applicat ion every day by ophthalm ic route at bedtime for 30 days. 2024 active Not Available Not Available Not Avai lable Vitamin D3 50 mcg (2,000 unit) capsule Take 1 capsule every day by oral route for 30 days. 2021 active Not Available Not Available Not Avai lable Vitals Date Recorded Body height Body mass index (BMI) Body weight Body temperature Heart rate Oxygen saturation Oxygen saturation in Arterial blood by Pulse oximetry Systolic blood pressure Diastolic blood pressure Provider Name and Address Organization Details Last Updated DateTime 3 156.21 cm 28.5 kg/m2 80572.4 3 g 97.5 [degF] 79 /min 98 % 98 % 149 mm[Hg] 97 mm[Hg] Migdalia Vasquez [facility] 3 16:05:23 Date Recorded Systolic blood pressure Diastolic blood pressure Provider Name and Address Organization Details Last Updated DateTime 11/12/2022 138 mm[Hg] 90 mm[Hg] MAYANK Bolden Attn: Accounting,[address] [place], [address], [facility] 11/12/2022 16:29:11 Date Recorded Body height Body mass index (BMI) Body weight Body temperature Heart rate Systolic blood pressure Diastolic blood pressure Provider Name and Address Organization Details Last Updated DateTime 4 156.21 cm 27 kg/m2 48410.8 9 g 97.8 [degF] 64 /min 169 mm[Hg] 99 mm[Hg] Dena Ng MA [facility] 4 15:57:58 Date Recorded Systolic blood pressure Diastolic blood pressure Provider Name and Address Organization Details Last Updated DateTime 05/12/2023 160 mm[Hg] 92 mm[Hg] MAYANK Bolden Attn: Accounting,[address] [place], [address], [facility] 05/12/2023 16:31:46 Date Recorded Body height Body temperature Body mass index (BMI) Body weight Heart rate Oxygen saturation Oxygen saturation in Arterial blood by Pulse oximetry Systolic blood pressure Diastolic blood pressure Provider Name and Address Organization Details Last Updated DateTime 4 156.21 cm 97.5 [degF] 27.1 kg/m2 96982.4 9 g 70 /min 98 % 98 % 143 mm[Hg] 97 mm[Hg] Sarika Basilio MA [facility] 4 12:11:00 Date Recorded Systolic blood pressure Diastolic blood pressure Systolic blood pressure Diastolic blood pressure Provider Name and Address Organization Details Last Updated DateTime 06/24/2023 150 mm[Hg] 90 mm[Hg] 150 mm[Hg] 98 mm[Hg] MAYANK Bolden Attn: Accounting ,[address] [place], [address] , [facility] 4 12:30:50 Date Recorded Body height Body temperature Heart rate Oxygen saturation Oxygen saturation in Arterial blood by Pulse oximetry Body mass index (BMI) Body weight Systolic blood pressure Diastolic blood pressure Provider Name and Address Organization Details Last Updated DateTime 4 156.21 cm 97.5 [degF] 84 /min 98 % 98 % 27.2 kg/m2 79041.8 9 g 131 mm[Hg] 77 mm[Hg] Migdalia Vasquez [facility] 4 17:38:10 Date Recorded Body height Body mass index (BMI) Body weight Body temperature Heart rate Systolic blood pressure Diastolic blood pressure Provider Name and Address Organization Details Last Updated DateTime 5 156.21 cm 27.3 kg/m2 87606.0 8 g 97.5 [degF] 65 /min 133 mm[Hg] 81 mm[Hg] Dena Ng MA [facility] 5 15:34:30 Social History Question Answer Notes LastModified by Organizat ion Details LastModified Time Tobacco Smoking Status Never Smoker Sarah abdi, [facility] 06/01/2015 15:15:31 Do You Or Have You Ever Used E-cigarettes Or Vape? Never Used Electronic Cigarettes Information not available 02/11/2019 What Was The Date Of Your Most Recent Tobacco Screening? 03/08/2024 Information not available 03/08/2024 Do You Or Have You Ever Used Smokeless Tobacco? Never Used Smokeless Tobacco kgarnerma Information not available 05/11/2019 Do You Or Have You Ever Used Any Other Forms Of Tobacco Or Nicotine? No Information not available 05/23/2021 Sex: Female Functional Status None recorded. Mental Status None recorded. Family History Relationship Description Onset Age of this Age Resolved Age Notes LastModified by Organization Details LastModified Time Father Malignant tumor of kidney 60 mets to brain [place] [address] Not available 10/06/2017 10:53:38 Father Heart disease [place] [address] Not available 10/06 10:54:58 Father Diabetes mellitus [place] [address] Not available 10/06 10:55:09 Mother Chronic obstructive pulmonary disease [place] [address] Not available 10/06 10:53:55 Mother Diabetes mellitus diet contro lled [place] [address] Not available 10/06/2017 10:54:08 Sister Fibromyalgia [place] [address] Not jaron ilable 10/06/2017 10:54:26 Medical History No medical history recorded. Gynecological HistoryNo gynecological history recorded. Obstetrics History GPAL:G 0 P 0 0 0 0 Immunizations Vaccine Type Date Status Note Provider Nam e and Address Organization Details Recorded Time Influenza, split virus, quadrivalent, preservative 9 completed Not Available [facility] 03/13/2019 02:38:12 Tdap 2 completed Migdalia abdi [place] 05/23/2021 18:00:54 Past Encounters Encounter ID Performer Location Encounter Start Date Encounter Closed Date Diagnosis/Indication Diagnosis SNOMED-CT Code Diagnosis ICD10 Code Diagnosis Note [id number] Oleg Gu PA-C [facility] [address] [place] [address] 06/01/2015 14:48:29 06/01/2015 15:58:05 Acute upper respiratory infection 96981170 J06.9 [id number] MAYANK Bolden FP ([facility]) [address] [place] [address] 10/06/2017 10:26:07 10/10/2017 11:50:27 Adult health examination 258168453 Z00.00 -PAP and mammogram done by specialist since she has history of breast and uterine cancer. Will request records.-C olonoscopy UTD, requesting records -Due for routine labs, will f/u based on results-Du e for Tdap, not available in office-Dis cussed diet and exercise-N egative depression screening Multiple b enign melanocytic nevi 543035034 D22.9 Would like to see derm for skin assessment with past history of cancer. Will place referral Edema of l ower extremity 772597874 R60.0 -Continue elevating extremitie s when swollen-En couraged low salt diet-Encou raged better footwear Impacted c erumen of bilateral ears 7353632248 455570 H61.23 -Ears flushed in office-May try OTC debrox [id number] MAYANK Bolden [facility] ([facility]) [address] [place] [address] 11/12/2018 16:42:54 11/16/2018 11:10:26 Adult health examination 173893973 Z00.00 -PAP and mammogram done by specialist since she has history of breast and uterine cancer. Will request records.-C olonoscopy UTD -Due for routine labs, will f/u based on results-Du e for Tdap, unavailabl e in the office today-Disc ussed diet and exercise-N egative depression screening Essential hypertension 69020998 I10 -start HCTZ-Goals : BP < 140/90 per JNC8, prevent CV and renal comorbidit ies.-Humaira loredo notify office for BP less than 90/60.-Lisa cheyin a low sodium (less than 2000mg) diet and encouraged at least 30-45 minutes of aerobic activity most days of the week-Encou raged smoking cessation if smoker [id number] MAYANK Bolden [facility] ([facility]) [address] [place] [address] 12/02/2018 10:12:50 12/04/2018 09:20:58 Essential hypertension 15200206 I10 -continue same dose of HCTZ-Goals : BP < 140/90 per JNC8, prevent CV and renal comorbidit ies.-Shoul d notify office for BP less than 90/60.-Lisa cheyin a low sodium (less than 2000mg) diet and encouraged at least 30-45 minutes of aerobic activity most days of the week-Encou raged smoking cessation if smoker Active or passive immunization 035264547 Z23 [id number] MAYANK Bolden [facility] ([facility]) [address] [place] [address] 01/27/2019 15:39:28 01/29/2019 09:26:35 Essential hypertension 76100724 I10 -not at goal but has been missing doses of her medication frequently .-advised to take medication daily without fail-shoul d avoid NSAIDs, limit salt consumptio n-report to the ER for chest pain, shortness of breath, sudden headache or blurry vision.-RT C 2 weeks for BP check [id number] MAYANK Bolden FP ([facility]) [address] [place] [address] 02/11/2019 08:58:05 02/12/2019 09:29:44 Essential hypertension 00868108 I10 -at goal on current medication on recheck, less than 140/90-adv ised to take medication daily without fail-shoul d avoid NSAIDs, limit salt consumptio n-report to the ER for chest pain, shortness of breath, sudden headache or blurry vision.-RT C 3 months [id number] MAYANK oBlden FP ([facility]) [address] [place] [address] 05/11/2019 09:45:10 05/14/2019 09:10:37 Essential hypertension 83654817 I10 -at goal on current medication on recheck, less than 140/90-adv ised to take medication daily without fail-shoul d avoid NSAIDs, limit salt consumptio n-report to the ER for chest pain, shortness of breath, sudden headache or blurry vision.-RT C 6 months [id number] JENNI Nash [address] [place] [address] 09/17/2019 12:53:53 09/20/2019 06:46:37 Suspected COVID-19 912923681 Z03.818 D/w pt the current pandemic of COVID-19 and call for social isolation in order to blunt the curve and minimize risk and spread. Encouraged patient and family to take restrictio ns seriously. They have verbalized understand ing of such. Viral syndrome 176285094 B34.9 [id number] JENNI PERALTA [address] [place] [address] 10/18/2019 11:10:48 10/19/2019 07:04:07 Suspected COVID-19 244466759 Z03.818 D/w pt the current pandemic of COVID-19 and call for social isolation in order to blunt the curve and minimize risk and spread. Encouraged patient and family to take restrictio ns seriously. They have verbalized understand ing of such. Viral syndrome 736251869 B34.9 [id number] JENNI Nash [address] [place] [address] 10/28/2019 09:11:21 11/02/2019 12:40:41 Suspected COVID-19 656453702 Z03.818 D/w pt the current pandemic of COVID-19 and call for social isolation in order to blunt the curve and minimize risk and spread. Encouraged patient and family to take restrictio ns seriously. They have verbalized understand ing of such. Viral syndrome 539659431 B34.9 [id number] MAYANK Bolden [facility] ([facility]) [address] [place] [address] 11/09/2019 09:38:29 11/09/2019 13:01:37 Essential hypertension 27385897 I10 -at goal on current medication -advised to take medication daily without fail-shoul d avoid NSAIDs, limit salt consumptio n-report to the ER for chest pain, shortness of breath, sudden headache or blurry vision.-RT C 6 months SARS-CoV-2 315045302 U07 .1 -still having some sinus congestion , using mucinex with relief-to ER with shortness of breath [id number] MAYANK Bolden e FP ([facility]) [address] [facility] [place] [address] 05/23/2021 09:18:01 05/24/2021 08:51:32 Essential hypertension 17018552 I10 -not at goal but has not been on medication BP Goal: {{Less than 140/90* Le ss than 150/90}}BP Controlled : {{yes no*} }Healthy Weight: {{4'10= 91-118 lbs 4'11= 94-123 lbs 5'= 97-127 lbs 5'1= 100-131 lbs* 5'2= 104-135 5' 3= 107-140 lbs 5'4= 110-144 lbs 5'5= 115-149 lbs 5'6= 118-154 lbs 5'7= 121-158 lbs 5'8= 125-163 lbs 5'9= 128-168 lbs 5'10= 132-173 lbs 5'11= 136-178 lbs 6'= 140-183 lbs 6'1= 144-188 lbs 6'2= 148-193 lbs 6'3= 152-199 lbs 6'4= 156-204 lbs}}Discu ssed: Low sodium balanced diet, moderate exercise at least 3-4 times per week for an average of 40 minutes, limiting alcohol to 1 drink per day (F) or 2 drinks per day (M), and smoking cessation if currently smoking.Ne xt Visit: {{1* 2 3 4 5 6 7 8 9 10 11 12} }{{week(s) month(s)* }} Adult heal th examination 499261972 Z00.00 -total hysterecto my, no PAPs-mammo gram UTD 12/2020-Co lonoscopy UTD 2012- repeat 10 years-vacc albaro UTD, declined COVID vaccines-D iscussed diet and exercise-N egative depression screening Fatigue 82362409 R53.83 -check labs to rule out anemia, thyroid disorder and vitamin D deficiency -encourage d proper sleep and hydration Overweight 902103577 E66 .3 Active or passive immunization 426169209 Z23 [id number] MAYANK Bolden [facility] ([facility]) [address] [place] [address] 01/10/2022 11:54:50 01/11/2022 11:25:55 Hyperglycemia 96567389 R73.9 -A1C 5.6-cont to diet control-re check in 6 months Overweight 220368077 E66 .3 Essential hypertension 82460195 I10 BP Goal: {{Less than 140/90* Le ss than 150/90}}BP Controlled : {{yes* no} }Healthy Weight: {{4'10= 91-118 lbs 4'11= 94-123 lbs 5'= 97-127 lbs 5'1= 100-131 lbs 5'2= 104-135* 5 '3= 107-140 lbs 5'4= 110-144 lbs 5'5= 115-149 lbs 5'6= 118-154 lbs 5'7= 121-158 lbs 5'8= 125-163 lbs 5'9= 128-168 lbs 5'10= 132-173 lbs 5'11= 136-178 lbs 6'= 140-183 lbs 6'1= 144-188 lbs 6'2= 148-193 lbs 6'3= 152-199 lbs 6'4= 156-204 lbs}}Discu ssed: Low sodium balanced diet, moderate exercise at least 3-4 times per week for an average of 40 minutes, limiting alcohol to 1 drink per day (F) or 2 drinks per day (M), and smoking cessation if currently smoking.Ne xt Visit: {{1 2 3 4 5 6* 7 8 9 10 11 12} }{{week(s) month(s)* }} [id number] Raven Starr, [employer] SAL[employer]-[facility] ([facility]) [address] [place] [address] 11/04/2022 16:08:34 11/07/2022 10:23:52 Dysuria 24029545 R30.0 fu as neededrepo rt to ED if s/s worsenhydr ation and rest encouraged along with voiding following sexual intercours eurine culture pending. will tailor treatment accordingl y upon receipt.UA revealed leuks. and blood. Nits. neg. Impacted c erumen in right ear [id number] 694189 H61.21 -removal via water and hydrogen peroxide irrigation per MA per vo-fu w/ PCP as needed-Pt reports noted improvemen t in s/s following procedure- R ear canal with evidence of dry skin and erythema at approx. 7 o'clock. Bacitracin applied to abrasion using a cotton tip. Pt tolerated procedure well. [id number] Raven Starr, [employer] SAL[employer] PERSON-[facility] ([facility]) [address] [place] [address] 11/11/2022 14:55:16 11/14/2022 14:38:04 Low back pain 316747010 M54.50 RICE encouraged Also encouraged to keep fu appt. w/ PCP for 11/12/22cel estone 12 mg and toradol 60 mg IM given once per MA per vopain management OTC samples providedim aging pending. will tailor treatment accordingl y upon receipt. Lower abdominal pain 545 [address]50 R10.30 *as noted per 11/11/22 order group* Pt now mentioning LLQ abdominal pain and cramping w/ generalize d/diffuse abdominal distension and hard to touch per pt x 5 days. She states she failed to mention previously dt distractio n w/ L lower back pain. She has trialed Macrobid for suspected UTI w/o relief. Urine culture neg. She describes the pain as a being a trapped gas . Trialed Gas-X OTC w/ relief. Stools brown and soft w/o blood. ABT provoked lack off appetite. However, no new changes to diet as of late. Continue Gas-X use as needed. Imaging pending. Will tailor treatment accordingl y upon receipt of labs. F/u appt. w/ PCP 11/12/22. [id number] Shay Westfall, JENNI-C Sarah jesus [facility] ([facility]) [address] [place] [address] 11/12/2022 15:55:37 11/22/2022 13:20:41 Cholelithiasis without obstruction 43246815 K80.80 -send for US Screening for malignant neoplasm of colon 767249955 Z12.11 Essential hypertension 99352568 I10 BP Goal: {{Less than 140/90* Le ss than 150/90}}BP Controlled : {{yes no*} } has not been compliant with [facility] y Weight: {{4'10= 91-118 lbs 4'11= 94-123 lbs 5'= 97-127 lbs 5'1= 100-131 lbs 5'2= 104-135* 5 '3= 107-140 lbs 5'4= 110-144 lbs 5'5= 115-149 lbs 5'6= 118-154 lbs 5'7= 121-158 lbs 5'8= 125-163 lbs 5'9= 128-168 lbs 5'10= 132-173 lbs 5'11= 136-178 lbs 6'= 140-183 lbs 6'1= 144-188 lbs 6'2= 148-193 lbs 6'3= 152-199 lbs 6'4= 156-204 lbs}}Discu ssed: Low sodium balanced diet, moderate exercise at least 3-4 times per week for an average of 40 minutes, limiting alcohol to 1 drink per day (F) or 2 drinks per day (M), and smoking cessation if currently smoking.Ne xt Visit: {{1 2 3 4 5 6* 7 8 9 10 11 12} }{{week(s) month(s)* }} Hyperglycemia 61035952 R 73.9 -A1C 5.7-cont to diet control-re check in 6 months Overweight 451368051 E66 .3 [facility] examination 234870554 Z00.00 -total hysterecto my, no PAPs-mammo gram UTD 06/2022-Co lonoscopy UTD 2012- repeat 10 years-vacc albaro UTD, declined COVID vaccines-D iscussed diet and exercise-N egative depression screening [id number] MAYANK Bolden [facility] ([facility]) [address] [place] [address] 05/12/2023 15:49:36 05/13/2023 13:48:09 Essential hypertension 95070049 I10 BP Goal: {{Less than 140/90* Le ss than 150/90}}BP Controlled : {{yes no*} } switch to lisinopril /hctz, common med reactions reviewedHe althy Weight: {{4'10= 91-118 lbs 4'11= 94-123 lbs 5'= 97-127 lbs 5'1= 100-131 lbs* 5'2= 104-135 5' 3= 107-140 lbs 5'4= 110-144 lbs 5'5= 115-149 lbs 5'6= 118-154 lbs 5'7= 121-158 lbs 5'8= 125-163 lbs 5'9= 128-168 lbs 5'10= 132-173 lbs 5'11= 136-178 lbs 6'= 140-183 lbs 6'1= 144-188 lbs 6'2= 148-193 lbs 6'3= 152-199 lbs 6'4= 156-204 lbs}}Discu ssed: Low sodium balanced diet, moderate exercise at least 3-4 times per week for an average of 40 minutes, limiting alcohol to 1 drink per day (F) or 2 drinks per day (M), and smoking cessation if currently smoking.Ne xt Visit: {{1* 2 3 4 5 6 7 8 9 10 11 12} }{{week(s) month(s)* }} Overweight 523066665 E66 .3 [id number] LILIANE BoldenC Sarah jesus FP ([facility]) [address] [place] [address] 06/24/2023 12:02:52 06/26/2023 16:30:23 Essential hypertension 72947832 I10 BP Goal: {{Less than 140/90* Le ss than 150/90}}BP Controlled : {{yes no*} } home numbers in rangeHealt hy Weight: {{4'10= 91-118 lbs 4'11= 94-123 lbs 5'= 97-127 lbs 5'1= 100-131 lbs* 5'2= 104-135 5' 3= 107-140 lbs 5'4= 110-144 lbs 5'5= 115-149 lbs 5'6= 118-154 lbs 5'7= 121-158 lbs 5'8= 125-163 lbs 5'9= 128-168 lbs 5'10= 132-173 lbs 5'11= 136-178 lbs 6'= 140-183 lbs 6'1= 144-188 lbs 6'2= 148-193 lbs 6'3= 152-199 lbs 6'4= 156-204 lbs}}Discu ssed: Low sodium balanced diet, moderate exercise at least 3-4 times per week for an average of 40 minutes, limiting alcohol to 1 drink per day (F) or 2 drinks per day (M), and smoking cessation if currently smoking.Ne xt Visit: {{1 2 3* 4 5 6 7 8 9 10 11 12} }{{week(s) month(s)* }} Overweight 852808341 E66 .3 [id number] Shay Westfall, LILIANEC Sarah jesus [facility] ([facility]) [address] [place] [address] 10/02/2023 17:31:15 10/03/2023 11:08:02 Hyperlipidemia 88512007 E78.5 -will be better about taking her statin-add zetia-rech jack labs in 3 months Essential hypertension 63160961 I10 BP Goal: {{Less than 140/90* Le ss than 150/90}}BP Controlled : {{yes* no} }Healthy Weight: {{4'10= 91-118 lbs 4'11= 94-123 lbs 5'= 97-127 lbs 5'1= 100-131 lbs* 5'2= 104-135 5' 3= 107-140 lbs 5'4= 110-144 lbs 5'5= 115-149 lbs 5'6= 118-154 lbs 5'7= 121-158 lbs 5'8= 125-163 lbs 5'9= 128-168 lbs 5'10= 132-173 lbs 5'11= 136-178 lbs 6'= 140-183 lbs 6'1= 144-188 lbs 6'2= 148-193 lbs 6'3= 152-199 lbs 6'4= 156-204 lbs}}Discu ssed: Low sodium balanced diet, moderate exercise at least 3-4 times per week for an average of 40 minutes, limiting alcohol to 1 drink per day (F) or 2 drinks per day (M), and smoking cessation if currently smoking.Ne xt Visit: {{1 2 3 4 5 6* 7 8 9 10 11 12} }{{week(s) month(s)* }} Hyperglycemia [id number] R 73.9 -A1C 5.5-cont to diet control-re check in 6 months [id number] Raven Starr, [id number]) [address] [place] [address] 03/08/2024 15:24:18 03/11/2024 12:03:18 Acute sinusitis [id number] J01.90 -fu as needed w/ PCP-hydrat ion and rest encouraged -report to ED if s/s worsen or experience CP, SOB, GREEN or the like-suppo rtive therapy along w/ hand hygeine, masking and staying away from others encouraged -no antihistam ine suggested dt reported dryness to throat already-hu midifier encouraged along with Vicks vapor rub ointment Acute conjunctivitis [id number] H10.32 -hand hygeine, warm compress applicatio ns and contagious ness discussed along with washing face using seperate ends of wash cloth to avoid cross contaminat ion-fu as needed w/ PCP-report to ED if s/s worsen-con tagiousnes s discussed- declined need for work note-trash make up and/or eye contacts if applicable -Encourage d to use OTC moisturizi ng eye ointment to aid in alleviatin g dryness. Discussed s/e and --Suggeste d use at HS dt associated vision changes. S/s believed to be dt touching eye prompting secondary bacterial conjunctiv itis Dry eyes [id number] H04.1 22 -hand hygeine-fu as needed w/ PCP-report to ED if s/s worsen-no antihistam ine suggested dt reported dryness to throat already-hu midifier encouraged -refrain from touching eye dt secondary bacterial conjunctiv itis Overweight [id number] E66 .3 Health Concerns Section Related Observation LastModified by Organization Detai ls LastModified Time None Recorded Concern Status LastModified by Organization Details LastModified Time None Recorded Advance Directives Directive None Recorded Payers Encounter Date Sequence Insurance Name Policy Number Policy Leone Covered Member ID Leone Member ID Guarantor Name 11/12/2022 1 [facility] - DOS ON OR AFTER 20 (MEDICAID REPLACEMENT - HMO) Cele Seth [id number] Cele Seth 05/12/2023 1 [facility] 08/24/20 (MEDICAID REPLACEMENT - HMO) Cele Seth [id number] Cele Seth 06/24/2023 1 [facility] ON OR AFTER 08/24/20 (MEDICAID REPLACEMENT - HMO) Cele Seth [id number] Cele Seth 10/02/2023 1 [facility] 08/24/20 (MEDICAID REPLACEMENT - HMO) Cele Seth [id number] Cele Seth 03/08/2024 1 [facility] ON OR AFTER 08/24/20 (MEDICAID REPLACEMENT - HMO) Cele Seth [id number] Cele Seth Notes Date Note Type Note Provider Name and Address Organization Details Recorded Time 11/12/2022 text/html Cele is her e today for a check up. She denies any chest pain, tightness, palpitations or SOB. She denies any increased thirst or urination. MAYANK Bolden Attn: [employer],[address] [place], [address], [facility] 11/21/2022 11:41:20 05/12/2023 text/html Hypertension F/UReported bypatient.Associated Symptoms:no dizziness; no lightheadedness; no chest pain; no shortness of breath; no palpitations; no edema; no calf pain with exertion Lifestyle:regular exercise; limiting/avoiding salt Medications:taking medications as directed; no side effects from medicationNotes:62 year old female seen today for hypertension follow up. In office bp is 169/99, currently taking hydrochlorothiazide 12.5 mg Po daily. She does not report any issues with medication. MAYANK Bolden Attn: Accounting,[address], [place], [address], [facility] 05/13/2023 09:41:10 06/24/2023 text/html Cele is her e for blood pressure check. She is complaining of a skin lesion between her breast. She notes the area gets large and she has been able to express things out of it (like a white head) MAYANK Bolden Attn: Accounting,[address] [place], [address], [facility] 06/25/2023 10:31:37 06/24/2023 text/html Hypertension F/UReported bypatient.Associated Symptoms:no dizziness; no lightheadedness; no chest pain; no shortness of breath; no palpitations; no edema; no calf pain with exertion Lifestyle:limiting/avoi ding salt;not exercising regularly Medications:taking medications as directed; no side effects from medication; checks blood pressure at home, range: (130/80s) MAYANK Bolden Attn: Accounting,[address] [place], [address], [facility] 06/25/2023 10:31:37 10/02/2023 text/html Hypertension F/UReported bypatient.Associated Symptoms:no dizziness; no lightheadedness; no chest pain; no shortness of breath; no palpitations; no edema; no calf pain with exertion Lifestyle:limiting/avoi ding salt;not exercising regularly Medications:taking medications as directed; no side effects from medication; checks blood pressure at home, range: (130/80s) Cele is here for blood pressure check.She has not been taking her cholesterol medication but is going to restart it after seeing her labs on the portal. MAYANK Bolden Attn: Accounting,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 She reports trialing multiple OTC medication w/o relief. She reports such s/s force her sleep on a recliner. Also, she c/o L eye dryness and irritation. Pt denies nausea, vomiting, fever, chills, rash, CP, SOB, GREEN, diarrhea, constipation and dysuria. Denies tobacco abuse and asthma/COPD. Raven Starr [employer]- Attn: [employer] [place], [address], [place] [facility] 03/10/2024 15:46:02 OBGyn Episode No OBEpisode recorded.
--- OUTSIDE RECORDS SUMMARY | 2024-03-30 12:53 | XMS_ITS | Clinical Summary ---
Author Organization [facility] Address [address] [place] [address]. 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 Role Phone Unavailable Primary Care Provider Unavailabl e Social History Tobacco Use Types Packs/Day Years Used Date Smoking Tobacco: Never Assessed Comments Unknown Sex and Gender Information Value Date Recorded Sex Assigned at Not on file Legal Sex Female 4:29 PM CDT Gender Identity Not on file Sexual Orientation Not on file Plan of Treatment Health Maintenance Due Date Last Done Comments Cervical Cancer Screening Pa p Smear (Age 30 to 64) Every 3 Years 1959 Colorectal Cancer Screening Colonoscopy (10 Years) 1959 Annual Physical 12/23/1962 Hepatitis C 12/23/1977 DTaP, Tdap and Td Vaccines ( 1 - Tdap) 12/23/1978 Cervical Cancer Screening Pa p with HPV Testing (Age 30 to 64) Every 5 Years 12/23/1989 Cervical Cancer Screening with HPV 12/23/1989 Mammogram Screening 1999 Zoster Vaccines (1 of 2) 12/23/2009 COVID-19 Vaccine (2023-2 5 season) 2023 Influenza Adult (#1) 2023 RSV Immunization or 60+ Years (1 - 1-dose 75+ series) 12/23/2034 Meningococcal B Vaccine Aged Out No l onger eligible based on patient's age to complete this topic Meningococcal Vaccine Aged Out No manas aditya eligible based on patient's age to complete this topic Pneumococcal Vaccine: Pediat rics (0 to 5 Years) and At-Risk Patients (6 to 64 Years) Aged Out No longer eligible b ased on patient's age to complete this topic RSV Immunizations Under 20 Months Aged Out No longer eligible based on patient's age to complete this topic
--- OUTSIDE RECORDS SUMMARY | 2024-03-30 12:53 | XMS_ITS | Data Portability ---
Author Organization [facility] [place] Address [address] [place] [address] Care Team Providers Care Press Room Supervisor Name Role Phone SHAY WESTFALL Primary Care Provider Assessment Encounter Date Assessment Date Assessment LastModified by Organization Details LastModified Time 09/15/2020 09/15/2020 Annual gynecological exam performed. Patient will come back in a year unless there are new symptoms. Not available 09/15/2020 11:03:21 10/16/2021 10/16/2021 Annual gynecological exam performed. Patient will come back in a year unless there are new symptoms. [email or web address] Not available 10/16/2021 12:24:36 01/21/2024 01/21/2024 Annual gynecological exam performed. Patient will come back in a year unless there are new symptoms. Not available 01/21/2024 13:02:12 Plan of Treatment Reminders Order Date Submit Date Provider Last Modified By Organization Details Last Modified Time Details Appointments None recorded. Lab None recorded. Referral None recorded. Procedures None recorded. Surgeries None recorded. Imaging DEXA, axial skeleton + vertebral fracture assessment 2020 021 [facility], [address], [place], [address], 17:59:52 DEXA, axial skeleton + vertebral fracture assessment 2023 024 [facility], [address], [place], [address], 4 13:46:43 MAMMO, screening, digital, bilateral 2023 024 [facility], [address] [place], [address], 4 04:02:21 Medication Orders None recorded. Patient TargetsNo targets recorded. Patient InstructionsNo instructions recorded. Reason for Referral None Reported. 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 Order ing Locat ion: [place] Patho log[facility] Recei vance: 09/16 0054 First Scree n: Doretha Griffiths, CT Speci men: Scree sharan Pap - Image d, Vagin a STATE MENT OF ADEQU ACY: Satis facto ry for evalu ation FINAL DIAGN OSIS: Negat mana for Intra epith elial Lesio n or Elidia mobley (NIL) Shift in jas sugge stive of bacte rial vagin osis Elect juvenal scott daphne d by Doretha Griffiths, CT on 2020 at 12:25 PM ----- ----- ----- ----- ----- ----- ----- ----- ----- ----- ----- ----- ----- ----- ----- ----- ----- ---- HPV RESUL TS: HPV mRNA E6/E7 : No HPV mRNA Detec marco NOTE: This high risk HPV mRNA assay detec ts fourt een high- risk HPV types (16, 18, 31, 33, 35, 39, 45, 51, 52, 56, 58, 59, 66, 68) witho ut diffe renti ation . CHART ABLE COMME NT: Note: This speci men was revie wed by a Cytot echno logis t and/o r Patho logis t (as indic ated in this repor t) after evalu ation using the Thinp rep Imagi ng Syste m. CLINI ASUNCION INFOR MATIO N: Menst rual Statu s: LMP (if appli cable ): Clini asuncion Histo ry/Pr eviou s Pap: Type of Neopl kristina (if appli cable ): Other Histo ry: Hormo anoop (if appli cable ): PAP EDUCA DAVE L NOTE: The Pap Test is a scree sharan test with an inher ent false negat mana rate. Liqui d-bas e sampl ing may decre ase, but will not elimi elmira, false negat mana resul ts. A negat mana resul t does not precl ude the prese nce and/o r devel opmen t of disea se, since the prese nce of abnor mal cells in the sampl e depen ds on the locat ion of the lesio n and sampl ing techn ique. Dvaon nued regul ar scree sharan is the best metho d of cance r preve ntion . If repor marco cytol ogic findi ng do not corre late with physi asuncion and/o r histo rical findi ngs, furth er inves tigat ion is recom court d, as clini minesh rodriges nted. Not Available [facility] (Lab) [address], [place], [address], 09/19/2020 13:27:33 01/10/20 21 01/09/2021 CBC W/DIF F WBC 6.6 10'3/ uL 3.6-10 .2 Not Available [facility] (Lab) [address], [place], [address], 01/10/2021 03:42:01 01/10/20 21 01/09/2021 CBC W/DIF F RBC 4.90 10'6/ uL (based on docume nted legal sex) 4.10-5 .30 Not Available [facility] (Lab) [address], [place], [address], 01/10/2021 03:42:01 01/10/20 21 01/09/2021 CBC W/DIF F HGB 14.4 g/dL (based on docume nted legal sex) 11.9-1 5.8 Not Available [facility] (Lab) [address], [place], [address], 01/10/2021 03:42:01 01/10/20 21 01/09/2021 CBC W/DIF F HCT 44.7 % (based on docume nted legal sex) 37.4-4 8.3 Not Available [facility] (Lab) [address], [place], [address], 01/10/2021 03:42:01 01/10/20 21 01/09/2021 CBC W/DIF F MCV 91.0 fL 82.0-9 9.0 Not Available [facility] (Lab) [address], [place], [address], 01/10/2021 03:42:01 01/10/20 21 01/09/2021 CBC W/DIF F MCH 29.0 pg 27.0-3 3.0 Not Available [facility] (Lab) [address] [place], [address], 01/10/2021 03:42:01 01/10/20 21 01/09/2021 CBC W/DIF F MCHC 32.0 g/dL 32.0-3 6.0 Not Available [facility] (Lab) [address] [place], [address], 01/10/2021 03:42:01 01/10/20 21 01/09/2021 CBC W/DIF F RDW 14.0 % 11.0-1 5.0 Not Available [facility] (Lab) [address] [place], [address], 01/10/2021 03:42:01 01/10/20 21 01/09/2021 CBC W/DIF F plt 196 10'3/ uL 150-45 0 Not Available [facility] (Lab) [address], [place], [address], 01/10/2021 03:42:01 01/10/20 21 01/09/2021 CBC W/DIF F MPV 12.0 fL 9.8-12 .7 Not Available [facility] (Lab) [address], [place], [address], 01/10/2021 03:42:01 01/10/20 21 01/09/2021 CBC W/DIF F NRBC's 0.00 % 0 Not Available [facility] (Lab) [address], [place], [address], 01/10/2021 03:42:01 01/10/20 21 01/09/2021 CBC W/DIF F absolute NRBCs 0.0 10'3/ uL 0 Not Available [facility] (Lab) [address], [place], [address], 01/10/2021 03:42:01 01/10/20 21 01/09/2021 CBC W/DIF F neutrophils 57.0 % 37.0-7 2.0 Not Available [facility] (Lab) [address] [place], [address], 01/10/2021 03:42:01 01/10/20 21 01/09/2021 CBC W/DIF F lymphocytes 30.0 % 16.0-4 8.0 Not Available [facility] (Lab) [address], [place], [address], 01/10/2021 03:42:01 01/10/20 21 01/09/2021 CBC W/DIF F monocytes 10.0 % 4.0-14 .0 Not Available [facility] (Lab) [address], [place], [address], 01/10/2021 03:42:01 01/10/20 21 01/09/2021 CBC W/DIF F eosinophils 1.0 % 0.0-9. 0 Not Available [facility] (Lab) [address] [facility], [place], [address], 01/10/2021 03:42:01 01/10/20 21 01/09/2021 CBC W/DIF F basophils 1.0 % 0.0-2. 0 Not Available [facility] (Lab) [address] [facility], [place], [address], 01/10/2021 03:42:01 01/10/20 21 01/09/2021 CBC W/DIF F immature granulocytes 1.0 % no define d refere nce range Not Available [facility] (Lab) [address] [facility], [place], [address], 01/10/2021 03:42:01 01/10/20 21 01/09/2021 CBC W/DIF F absolute neutrophils 3.8 10'3/ uL 1.1-6. 0 Not Available [facility] (Lab) [address] [facility], [place], [address], 01/10/2021 03:42:01 01/10/20 21 01/09/2021 CBC W/DIF F absolute lymphocytes 2.0 10'3/ uL 0.7-3. 4 Not Available [facility] (Lab) [address] [facility], [place], [address], 01/10/2021 03:42:01 01/10/20 21 01/09/2021 CBC W/DIF F absolute monocytes 0.6 10'3/ uL 0.3-1. 0 Not Available [facility] (Lab) [address] [place], [address], 01/10/2021 03:42:01 01/10/20 21 01/09/2021 CBC W/DIF F absolute eosinophils 0.1 10'3/ uL 0.0-0. 6 Not Available [facility] (Lab) [address] [facility], [place], [address], 01/10/2021 03:42:01 01/10/20 21 01/09/2021 CBC W/DIF F absolute basophils 0.0 10'3/ uL 0.0-0. 1 Not Available [facility] (Lab) [address] [facility], [place], [address], 01/10/2021 03:42:01 01/10/20 21 01/09/2021 CBC W/DIF F absolute immature granulocytes 0.10 10'3/ uL 0.00-0 .10 01/10 1:19 AM: P indic ates parti al resul ts on a panel have been relea sed. Addit ional resul ts will follo w. 01/10 1:19 AM: This resul t has been final verif ied. No addit ional or cha ed resul ts are expec marco. Not Available [facility] (Lab) [address] [facility], [place], [address], 01/10/2021 03:42:01 01/10/20 21 01/09/2021 PHOSP HORUS phosphorus 4.2 mg/dL 2.5-5. 0 Not Available [facility] (Lab) [address] [facility], [place], [address], 01/10/2021 03:42:01 01/10/20 21 01/09/2021 CMP(C OMPRE HENSI VE METAB OLIC PANEL ) sodium 140 mmol/ L 133-14 6 Not Available [facility] (Lab) [address] [facility], [place], [address], 01/10/2021 03:42:01 01/10/20 21 01/09/2021 CMP(C OMPRE HENSI VE METAB OLIC PANEL ) potassium 4.9 mmol/ L 3.5-5. 1 Not Available [facility] (Lab) [address] [facility], [place], [address], 01/10/2021 03:42:01 01/10/20 21 01/09/2021 CMP(C OMPRE HENSI VE METAB OLIC PANEL ) chloride 103 mmol/ L 98-107 Not Available [facility] (Lab) [address], [place], [address], 01/10/2021 03:42:01 01/10/20 21 01/09/2021 CMP(C OMPRE HENSI VE METAB OLIC PANEL ) carbon dioxide 27 mmol/ L 21-31 Not Available [facility] (Lab) [address], [place], [address], 01/10/2021 03:42:01 01/10/20 21 01/09/2021 CMP(C OMPRE HENSI VE METAB OLIC PANEL ) anion gap 10 mmol/ L 4-13 Not Available [facility] (Lab) [address], [place], [address], 01/10/2021 03:42:01 01/10/20 21 01/09/2021 CMP(C OMPRE HENSI VE METAB OLIC PANEL ) blood urea nitrogen 18 mg/dL 7-25 Not Available [facility] (Lab) [address], [place], [address], 01/10/2021 03:42:01 01/10/20 21 01/09/2021 CMP(C OMPRE HENSI VE METAB OLIC PANEL ) creatinine 0.75 mg/dL 0.60-1 .30 Not Available [facility] (Lab) [address] [facility], [place], [address], 01/10/2021 03:42:01 01/10/20 21 01/09/2021 CMP(C OMPRE HENSI VE METAB OLIC PANEL ) egfrcr (CKD-epi 2020) >90 mL/mi n/1.7 3_m2 >=60 Not Available [facility] (Lab) [address], [place], [address], 01/10/2021 03:42:01 01/10/20 21 01/09/2021 CMP(C OMPRE HENSI VE METAB OLIC PANEL ) calcium 10.1 mg/dL 8.3-10 .5 Not Available [facility] (Lab) [address] [facility], [place], [address], 01/10/2021 03:42:01 01/10/20 21 01/09/2021 CMP(C OMPRE HENSI VE METAB OLIC PANEL ) glucose 111 mg/dL 70-100 high Not Available [facility] (Lab) [address] [facility], [place], [address], 01/10/2021 03:42:01 01/10/20 21 01/09/2021 CMP(C OMPRE HENSI VE METAB OLIC PANEL ) protein, total 6.7 g/dL 6.4-8. 3 Not Available [facility] (Lab) [address] [facility], [place], [address], 01/10/2021 03:42:01 01/10/20 21 01/09/2021 CMP(C OMPRE HENSI VE METAB OLIC PANEL ) albumin 4.6 g/dL 3.5-5. 0 Not Available [facility] (Lab) [address] [facility], [place], [address], 01/10/2021 03:42:01 01/10/20 21 01/09/2021 CMP(C OMPRE HENSI VE METAB OLIC PANEL ) ALT 36 units /L 9-43 Not Available [facility] (Lab) [address] [facility], [place], [address], 01/10/2021 03:42:01 01/10/20 21 01/09/2021 CMP(C OMPRE HENSI VE METAB OLIC PANEL ) alkaline phosphatase 92 units /L 34-104 Not Available [facility] (Lab) [address] [place], [address], 01/10/2021 03:42:01 01/10/20 21 01/09/2021 CMP(C OMPRE HENSI VE METAB OLIC PANEL ) AST 23 units /L 13-39 Not Available [facility] (Lab) [address] [facility], [place], [address], 01/10/2021 03:42:01 01/10/20 21 01/09/2021 CMP(C EDE MUELLER VE METAB OLIC PANEL ) bilirubin, total 0.5 mg/dL 0.2-1. 2 Not Available [facility] (Lab) [address] [place], [address], 01/10/2021 03:42:01 01/10/20 21 01/09/2021 TSH, REFLE X FREE T4 TSH 3.00 uIU/m L 0.30-5 .33 Not Available [facility] (Lab) [address] [facility], [place], [address], 01/10/2021 03:42:02 01/10/20 21 01/09/2021 VITAM IN D, 25-OH (TOTA L D2/D3 ) vitamin D, 25-hydroxy, total 31.4 NG/mL 30-80 NOTE: Defic iency : <20 ng/mL Insuf ficie ncy: 20-29 ng/mL Optim um Level : 30-80 ng/mL Possi ble Toxic ity: >80 ng/mL Most patie nts with toxic ity have level s >150 ng/mL . Not Available [facility] (Lab) [address] [place], [address], 01/10/2021 03:42:02 01/21/20 24 01/21/2024 IMAGE GUIDE D PAP AND HPV REGAR DLESS image guided Pap, HPV regardless of Pap result SEE RESULT S BELOW CASE REPOR T: Cytol ogy Gynec ologi asuncion Repor t Case: [id number] Autho danika garcía Provi marine: Renuka Akhtar, JENNI Colle cted: 01/20 1420 Order ing Locat ion: [place] Patho [place] Recei vance: 01/21 0222 First Scree n: Nancie Barker ret, CT Speci men: Scree sharan Pap - Image d, Vagin a STATE MENT OF ADEQU ACY: Satis facto ry for evalu ation Keith fraser mmamekhi on prese nt. ----- ----- ----- ----- ----- ----- ----- ----- ----- ----- ----- ----- ----- ----- ----- ----- ----- ---- FINAL DIAGN OSIS: Negat mana for Intra epith elial Lesio n or Elidia mobley (NIL) . Elect juvenal serna d by Nancie Barker ret, CT on 2023 at 1:59 PM ----- ----- ----- ----- ----- ----- ----- ----- ----- ----- ----- ----- ----- ----- ----- ----- ----- ---- HPV RESUL TS: HPV mRNA E6/E7 : No HPV mRNA Detec marco NOTE: This high risk HPV mRNA assay detec ts fourt een high- risk HPV types (16, 18, 31, 33, 35, 39, 45, 51, 52, 56, 58, 59, 66, 68) witho ut diffe renti ation . COMME NT: This speci men was revie wed by a Cytot echno logis t and/o r Patho logis t (as indic ated in this repor t) after evalu ation using the Thinp rep Imagi ng Syste m. CLINI ASUNCION INFOR MATIO N: Menst rual Statu s: LMP (if appli cable ): Clini asuncion Histo ry/Pr eviou s Pap: Type of Neopl kristina (if appli cable ): Signi fican t Clini asuncion Findi ngs: Other Histo ry: Hormo anoop (if appli cable ): PAP EDUCA DAVE L NOTE: The Pap Test is a scree sharan test with an inher ent false negat mana rate. Liqui d-bas ed sampl ing may decre ase, but will not elimi elmira, false negat mana resul ts. A negat mana resul t does not precl ude the prese nce and/o r devel opmen t of disea se, since the prese nce of abnor mal cells in the sampl e depen ds on the locat ion of the lesio n and sampl ing techn ique. Davon nued regul ar scree sharan is the best metho d of cance r preve ntion . If repor marco cytol ogic findi ng do not corre late with physi asuncion and/o r histo rical findi ngs, furth er inves tigat ion is recom court d, as clini minesh rodriges nted. Not Available [facility] (Lab) [address] [facility], [place], [address], 02/02/2024 15:03:35 12/08/19 21 11/17/2020 DEXA, axial skele ton + verte bral fract ure asses sment No observ ation record ed. [facility] [address], [place], [address], 12/08/2020 19:12:38 12/30/19 21 12/29/2020 MAMMO , scree sharan, bilat eral No observ ation record ed. [email or web address] [facility] [address] [place], [address], 01/08/2021 13:53:59 Result Notes None recorded. Problems Name Problem SNOMED Code Status Onset Date Resolution Date Notes Provider Name and Address Organization Details Recorded Time Atypical squamous cells of undeterm ined signific ance on cervical Papanico laou smear 848027420 Completed 201001/10/2012 Papanico laou smear of cervix with atypical squamous cells of undeterm ined signific ance (ASC-US) ;Recorde d Elsewher e: No Locat ion: [facility] S ource: EHR Personal Fitness Manager july: N Practi ce ID: 0001 Zaire lable Time: 01:30:00 PM Asuncion Duarte [facility] 1 11:06:38 Malignan t neoplasm of uterus [id number] Completed 201209/15/2020 Malignan t neoplasm of uterus, part unspecif ied;Foster rded Elsewher e: No [facility]: EHR Personal Fitness Manager july: Y Arsenioti ce ID: 0001 Zaire lable Time: 08:45:00 AM Asuncion Duarte [facility] 1 11:06:51 Flatulen ce, eructati on and gas pain [id number] Completed 201109/15/2020 Flatulen ce, eructati on, and gas pain;Rec orded Elsewher e: No Locat ion: [facility] S ource: EHR Personal Fitness Manager july: N Arsenioti ce ID: [email or web address] Zaire lable Time: 11:30:00 AM Asuncion Duarte [facility] 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 1 11:07:03 Disorder of breast [id number] Completed 201809/15/2020 Disorder of breast, unspecif ied;Foster rded Elsewher e: No Locat ion: [facility] S ource: EHR Personal Fitness Manager july: N Arsenioti ce ID: 0001 Zaire lable Time: 02:00:00 PM Asuncion Duarte [facility] 11:06:41 Breast finding [id number] Completed 201001/10/2012 Other signs and symptoms in breast;R ecorded Elsewher e: No Locat ion: [facility] S ource: EHR Personal Fitness Manager july: N Practi ce ID: 0001 Zaire lable Time: 02:00:00 PM Not Available [facility] 15:12:[address] Concept Completed 201509/15/2020 Encntr for general adult medical exam w/o abnormal findings ;Recorde d Elsewher e: No Locat ion: [facility] S ource: EHR Personal Fitness Manager july: N Practi ce ID: 0001 Zaire lable Time: 01:30:00 PM Asuncionsukhdev Duarte [facility] 1 11:07:01 Radiolog y result abnormal [id number] Completed 201209/15/2020 Nonspeci fic abnormal findings on radiolog ical and other examinat ion of genitour inary organs;R ecorded Elsewher e: No Locat ion: [facility] S ource: EHR Personal Fitness Manager july: Y Practi ce ID: 0001 Zaire lable Time: 10:15:00 AM Asuncion Duarte [place] [facility] 1 11:06:56 Atypical squamous cells of undeterm ined signific ance on cervical Papanico laou smear [id number] Completed 201209/15/2020 Papanico laou smear of cervix with atypical squamous cells of undeterm ined signific ance (ASC-US) ;Recorde d Elsewher e: No Locat ion: [facility] S ource: EHR Personal Fitness Manager july: N Practi ce ID: 0001 Zaire lable Time: 08:45:00 AM Asuncion Duarte [place] [facility] 1 11:06:38 Speciali zed medical examinat ion Completed 201109/15/2020 Routine gynecolo gical examinat ion;Prac elaine ID: 0001 Asuncionsukhdev Duarte [place] [facility] 1 11:07:05 Microsco pic hematuri a [id number] Completed 201109/15/2020 HEMATURI A MICROSCO PIC;Prac elaine ID: 0001 Asuncion Duarte [facility] 11:06:53 Cytologi c finding [id number] Completed 201109/15/2020 Pap Abnormal LGSIL;Pr actice ID: 0001 Asuncion Duarte [facility] 11:06:40 Pregnanc y test negative [id number] Completed 201009/15/2020 Negative Pregnanc y Test;Pra ctice ID: 0001 Asuncion Duarte [facility] 11:06:54 Screenin g for malignan t neoplasm of rectum Completed 201009/15/2020 Screenin g for malignan t neoplasm s of the rectum;P ractice ID: 0001 Asuncion Duarte [facility] 11:06:59 Screenin g for malignan t neoplasm of cervix Completed 201009/15/2020 Pap Smear;Pr actice ID: 0001 Asuncion Duarte [facility] 11:06:58 Dysmenor dmitri [id number] Completed 201009/15/2020 Dysmenor dmitri;Pra ctice ID: 0001 Asuncion Duarte [facility] 11:06:43 Abnormal cervical Papanico laou smear [id number] Completed 201309/15/2020 Other abnormal papanico laou smear of cervix and cervical HPV;Foster rded Elsewher e: No Locat ion: [facility] S ource: EHR Personal Fitness Manager july: N Practi ce ID: 0001 Zaire lable Time: 09:15:00 AM [facility] 11:06:35 Atypical endometr ial hyperpla phylicia [id number] Completed 201209/15/2020 Endometr ial hyperpla phylicia with atypia;R ecorded Elsewher e: No Locat ion: [facility] S ource: EHR Personal Fitness Manager july: Y Practi ce ID: 0001 Zaire lable Time: 09:00:00 AM Asuncion Duarte [facility] 1 11:06:36 Speciali zed medical examinat ion Completed 201001/10/2012 Gynecolo gical Examinat ion;Foster rded Elsewher e: No Locat ion: [facility] S ource: EHR Personal Fitness Manager july: N Arsenioti ce ID: 0001 Zaire lable Time: 02:00:00 PM Asuncion Duarte [facility] 1 11:07:05 Evaluati on finding Completed 201809/15/2020 Hematuri a, unspecif ied;Foster rded Elsewher e: No Locat ion: [facility] S ource: EHR Personal Fitness Manager july: N Arsenioti ce ID: 0001 Zaire lable Time: 03:00:00 PM Asuncion Duarte [facility] 1 11:06:44 Finding of sensatio n of breast Completed 201809/15/2020 Mastodyn ia;Recor ded Elsewher e: No Locat ion: [facility] S ource: EHR Personal Fitness Manager july: N Arsenioti ce ID: 0001 Zaire lable Time: 03:44:18 PM Asuncion Duarte [facility] 1 11:06:46 Malignan t neoplasm of corpus uteri, excludin g isthmus [id number] Completed 201209/15/2020 Malignan t neoplasm of corpus uteri, except isthmus; Practice ID: 0001 Asuncion Duarte [facility] 1 11:06:50 Problem Notes None recorded. Procedures Surgical History Date Name Laterality Status Provider Name and Address Organization Details Recorded Time 11/01/20 23 Date of Last Mammogram completed [facility] 01/21/2024 13:06:38 07/09/19 23 completed [facility] 01/21/2024 13:03:21 06/25/19 23 Date of Last Colonoscopy completed [facility] 01/21/2024 13:07:16 06/25/19 23 Colonoscopy completed [facility] 01/21/2024 13:07:44 09/16/19 21 Date of Last Pap Smear completed [facility] 10/16/2021 12:30:29 02/24/19 13 Hysteroscopy completed [facility] 09/15/2020 11:20:47 02/24/19 13 excision of lymph node completed [facility] 09/15/2020 11:21:18 02/24/19 13 Colonoscopy completed [facility] 09/15/2020 11:21:35 02/24/19 10 reconstruction of breast with lathe winder or prosthesis completed [facility] 09/15/2020 11:20:24 02/24/19 07 Mastectomy completed [facility] 09/15/2020 11:19:57 02/24/18 76 Tonsillectomy completed [facility] 09/15/2020 11:20:06 Imaging Results Imaging Date Name Status LastModified by Organiz ation Details LastModified Time 11/17/2020 DEXA, axial skeleton + vertebral fracture assessment completed [facility] [address], [place], [address], 12/08/2020 19:12:38 12/29/2020 MAMMO, screening, bilateral completed [email or web address] [facility] [address] [place], [address], 01/08/2021 13:53:59 Procedure Notes None recorded. Medical Equipment None Reported. Allergies No known drug allergies Medications Name Sig Start Date Stop Date Status Note LastModified by Organization Details LastModified Time Vitamin B-12 100 mcg tablet 01/20 completed Prescrib ed Elsewher e: Yes [facility] By: olya cole Enco unter DateTime : 03/12/19 13 09:00:00 AM Not Available Not Available Not Available Grape Seed 25 mg capsule 01/20 completed Prescrib ed Elsewher e: Yes Loca tion: [facility] odify By: ira Jesus ncounter DateTime : 04/09/19 14 09:15:00 AM Not Available Not Available Not Available Metrogel Vaginal 0.75 % (37.5 mg/5 gram) insert 1 applicat orful by vaginal route for 5 nights at bedtime 09/15 completed Prescrib ed Elsewher e: No Locat ion: [facility] odify By: hal Jesus ncounter DateTime : 11/27/19 18 10:49:51 AM Not Available Not Available Not Available Flagyl 500 mg tablet Take 1 pill by mouth every 12 hours for 7 days 10/16 completed Not Available Not Available Not Available Cipro 500 mg tablet take 1 tablet (500MG) by oral route every 12 hours 09/15 completed Prescrib ed Elsewher e: No Locat ion: [facility] odify By: jose carlosdiasuncion Encount er DateTime : 01/22/20 12 12:51:08 PM Not Available Not Available Not Available hydrochlo rothiazid e 12.5 mg capsule TAKE 1 CAPSULE BY MOUTH ONCE DAILY IN THE MORNING 01/20 completed Not Available Not Available Not Available lisinopri l 10 mg-hydroc hlorothia zide 12.5 mg tablet TAKE 1 TABLET BY MOUTH ONCE DAILY FOR HIGH BLOOD PRESSURE active Not Available Not Available No t Available Vitamin C 500 mg capsule,e xtended release 01/20 completed Prescrib ed Elsewher e: Yes Loca tion: [facility] odify By: hal farias DateTime : 01/25/20 11 01:30:00 PM Not Available Not Available Not Available Vitamins and Minerals tablet active Prescrib ed Elsewher e: Yes Loca tion: [facility] odify By: hal farias DateTime : 01/25/20 11 01:30:00 PM Not Available Not Available Not Available ezetimibe 10 mg tablet TAKE 1 TABLET BY MOUTH ONCE DAILY LABS DUE active Not Available Not Available No t Available rosuvasta tin 20 mg tablet TAKE 1 TABLET BY MOUTH ONCE DAILY AT BEDTIME active Not Available Not Available No t Available Calcio Vida 500 mg tablet 01/20 completed Prescrib ed Elsewher e: Yes Loca tion: [facility] odify By: arnol gottlieb DateTime : 12/16/19 11 10:10:03 PM Not Available Not Available Not Available Vitamin D3 10 mcg (400 unit) capsule 01/20 completed Prescrib ed Elsewher e: Yes Loca tion: [facility] odify By: hal farias DateTime : 01/25/20 11 01:30:00 PM Not Available Not Available Not Available hydrochlo rothiazid e 12.5 mg tablet Take 1 tablet every day by oral route. 01/20 completed Not Available Not Available Not Available beta 1,3 glucan (bulk) 91 % powder 01/20 completed Prescrib ed Elsewher e: Yes Loca tion: [facility] odify By: kim de la cruz DateTime : 07/23/19 13 10:00:00 AM Not Available Not Available Not Available acai donovan extract 500 mg capsule 04/09 completed Prescrib ed Elsewher e: Yes Loca tion: [facility] odify By: ira farias DateTime : 01/25/20 11 01:30:00 PM Not Available Not Available Not Available Lysteda 650 mg tablet take 2 tablet (1300MG) by oral route 3 times every day during menses 01/08 completed Prescrib ed Elsewher e: No [facility] By: kim de la cruz DateTime : 05/27/19 12 04:51:40 PM Not Available Not Available Not Available Probiotic 10 billion cell capsule active Prescrib ed Elsewher e: Yes Loca tion: [facility] odify By: kim de la cruz DateTime : 07/23/19 13 10:00:00 AM Not Available Not Available Not Available krill oil 500 mg capsule 04/09 completed Prescrib ed Elsewher e: Yes Loca tion: [facility] odify By: ria farias DateTime : 01/25/20 11 01:30:00 PM Not Available Not Available Not Available olive leaf extract 250 mg capsule 01/20 completed Prescrib ed Elsewher e: Yes Loca tion: [facility] odify By: kim de la cruz DateTime : 07/23/19 13 10:00:00 AM Not Available Not Available Not Available caprylic- capric triglycer henry (bulk) liquid 01/20 completed Prescrib ed Elsewher e: Yes Loca tion: [facility] odify By: kim de la cruz DateTime : 07/23/19 13 10:00:00 AM Not Available Not Available Not Available broccoli flower 500 mg tablet 01/20 completed Prescrib ed Elsewher e: Yes Loca tion: [facility] odify By: kim de la cruz DateTime : 07/23/19 13 10:00:00 AM Not Available Not Available Not Available biotin 1 mg capsule 01/20 completed Prescrib ed Elsewher e: Yes Loca tion: [facility] odify By: kenn farias DateTime : 12/28/19 15 02:00:00 PM Not Available Not Available Not Available Vitals Date Recorded Body height Body mass index (BMI) Body weight Systolic blood pressure Diastolic blood pressure Provider Name and Address Organization Details Last Updated DateTime 09/15/2020 154.94 cm 29.1 kg/m2 07722.22 g 132 mm[Hg] 78 mm[Hg] Amy Wynn [facility] [address], [place], [address], [facility] 11:32:14 Date Recorded Body height Body weight Provider Name and Address Organization Details Last Updated DateTime 10/16/2021 154.94 cm 67958.08 g Asuncion Duarte [facility] 10/16/2021 12:30:03 Date Recorded Systolic blood pressure Diastolic blood pressure Provider Name and Address Organization Details Last Updated DateTime 10/16/2021 122 mm[Hg] 78 mm[Hg] Amy Wynn [facility] [address], [place], [address], [facility] 10/16/2021 12:33:51 Date Recorded Body height Body mass index (BMI) Body weight Systolic blood pressure Diastolic blood pressure Provider Name and Address Organization Details Last Updated DateTime 01/21/2024 154.94 cm 27.6 kg/m2 37898.49 g 135 mm[Hg] 89 mm[Hg] Brianne Rizzo [facility] 13:02:58 Social History Question Answer Notes LastModified by Organizat ion Details LastModified Time Tobacco Smoking Status Never Smoker Asuncion Duarte [facility], [facility] 09/15/2020 11:19:35 Do You Have An Advance Directive? No Information not available 01/21/2024 What Is Your Level Of Alcohol Consumption? None Information not available 01/21/2024 Are You Blind Or Do You Have Difficulty Seeing? No Information not available 09/15/2020 What Is Your Level Of Caffeine Consumption? Moderate Information not available 01/21/2024 How Much Tobacco Do You Chew? None Information not available 01/21/2024 Have You Been To An Area Known To Be High Risk For COVID-19? No Information not available 01/21/2024 Are You Deaf Or Do You Have Serious Difficulty Hearing? No Information not available 09/15/2020 What Type Of Diet Are You Following? REGULAR Information not available 09/15/2020 What Is The Highest Grade Or Level Of School You Have Completed Or The Highest Degree You Have Received? 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 No Information not available 01/21/2024 Do You Use Protection During Sex? Always Information not available 01/21/2024 Do You Use Your Seat Belt Or Car Seat Routinely? Yes Information not available 09/15/2020 Do You Have Smoke And Carbon Monoxide Detectors In Your Home? Yes Information not available 09/15/2020 How Much Tobacco Do You Smoke? No Information not available 01/21/2024 Do You Feel Stressed (tense, Restless, Nervous, Or Anxious, Or Unable To Sleep At Night)? [id number] Information not available 01/21/2024 Do You Use Any Illicit Or Recreational Drugs? No Information not available 09/15/2020 Do You Use Sunscreen Routinely? Yes Information not available 09/15/2020 Sex: Unknown Functional Status Question Answer Note LastModified by Organizat ion Details LastModified Time Do you have difficulty walking or climbing stairs? No Information not available 10/01/2021 Are you able to walk? YESWOREST Information not available 09/15/2020 Are you able to care for yourself? Yes Information not available 10/01/2021 Do you have difficulty dressing or bathing? No Information not available 10/01/2021 What is your exercise level? Occasional Information not available 09/15/2020 Mental Status None recorded. Family History Relationship Description Onset Age of this Age Resolved Age Notes LastModified by Organization Details LastModified Time Father Malignant tumor of lung Not available 2021 09:51:46 Father Heart disease CAD Not available 2021 09:51:54 Father Malignant tumor of kidney [email or web address] Not available 2023 12:57:27 Father Diabetes mellitus Not available 2021 09:52:11 Father Hypertensive disorder Not available 2021 09:52:19 Mother Diabetes mellitus Not available 2021 09:52:26 Sister Cyst of ovary [email or web address] Not available 2023 12:57:27 Medical History Condition Response Cancer Y Hypertension Y Breast Cancer Y Gynecological History Statement/Question Response Abnormal Pap Y Date of Last Mammogram 12/25/2022 On BCP's at Conception? N N STIs/STDs Y HPV Vaccine N Current Control Method Hysterectom y Age at First Child 19 If Post Menopausal, Age at Menopause 49 Date of Last Colonoscopy 06/24/2022 Sexually Active? N Menses Monthly N Date of DEXA bone scan 11/17/2020 Age of first menstrual cycle 13 Date of Last Pap Smear 09/15/2020 Sexual Problems? N LMP Unknown 07/08/2022 N Obstetrics History GPAL:G 4 P 3 0 1 1 Type Value Full Term 3 Spontaneous 1 Living 1 Total 4 Past Encounters Encounter ID Performer Location Encounter Start Date Encounter Closed Date Diagnosis/Indication Diagnosis SNOMED-CT Code Diagnosis ICD10 Code Diagnosis Note [id number] Aym Wynn , [facility] [address] [address] 09/15/2020 10:42:49 09/15/2020 12:10:27 Gynecologic examination 45643709 Z01.419 Take Calcium with Vitamin D 12-1500mg daily. Do monthly self breast exams. It is advised to get annual flu shot in the fall and she could obtain at [facility] or [facility] care clinic. If you haven't received the Tdap vaccine in the last 10 years you should obtain one as well. Have mammogram yearly, bone density every 2-3 years and colonoscop y every 5-10 years depending on findings and history. Engage in daily exercise of low impact aerobic exercise 45-60 minutes 4-5 times weekly. Avoid tobacco and illicit drugs as well as using moderation with alcohol intake less than 1-2 8 oz beverages daily. This lifestyle behavior pattern will lead to less health conditions and longer life span. If BMI greater than 25 weight watchers or dietary consult advised. Questions have been answered. Patient appears to understand instructio ns, but if you have any further questions call or respond to this email Complete hysterecto my for cancer indication s (not cervical). Last 5 pap/hpv were negOpts to have pap/hpv screening- -sentdecli theron std screenMamm o done by breast specialist Dexa ordered (osteopeni a)Colon 2012 UTD Postmenopa usal osteopenia [id number] M85.[id number] [facility] [facility] [address] [address] 10/16/2021 12:16:27 10/16/2021 12:58:11 Gynecologic examination [id number] Z01.419 Z11.51 Take Calcium with Vitamin D 12-1500mg daily. Do monthly self breast exams. It is advised to get annual flu shot in the fall and she could obtain at [facility] or [facility] clinic. If you haven't received the Tdap vaccine in the last 10 years you should obtain one as well. Have mammogram yearly, bone density every 2-3 years and colonoscop y every 5-10 years depending on findings and history. Engage in daily exercise of low impact aerobic exercise 45-60 minutes 4-5 times weekly. Avoid tobacco and illicit drugs as well as using moderation with alcohol intake less than 1-2 8 oz beverages daily. This lifestyle behavior pattern will lead to less health conditions and longer life span. If BMI greater than 25 weight watchers or dietary consult advised. Questions have been answered. Patient appears to understand instructio ns, but if you have any further questions call or respond to this email WWE q2yrs unless otherwise indicated as long as breast care provided by specialist /followed by PCP.Pap/hp v USPSTF recommends against screening for cervical cancer in women older than 65yo, those who've had a hysterecto my for non-cancer indication s, & who have had adequate prior screening & are not otherwise at high risk for cervical cancer. STD Screen declinedGe netic Screen discussedC olon Screen UTD PCPDexa Screen UTD PCPRoutine Labs UTD PCPMammo-- Breast Care followed by [facility] b/c personal Hx breast cancer left breast [id number] NARCISO Mc[facility] [address] [address] 01/21/2024 12:57:05 01/21/2024 13:46:43 Gynecologic examination [id number] Z01.419 WWEpelijah monroyusalPap - updatedSTI screen - declinedMa mmogram - order givenColon cancer screening - UTDDexa - order givenRouti ne labs - UTD/PCPRTC in 1 yr or sooner if needed Do monthly self breast exams.It is advised to get annual flu shot in the fall and she could obtain at local pharmacy. If you haven't received the Tdap vaccine in the last 10 years you should obtain one as well.Have mammogram yearly, bone density every 2-3 years and stay up to date on colon cancer screening. Engage in regular exercise. Avoid tobacco and illicit drugs. This lifestyle behavior pattern will lead to less health conditions and longer life span. If BMI greater than 25 dietary consult advised.Qu estions have been answered. Screening for malignant neoplasm of breast 453069397 Z12.39 Screening for osteoporosis [id number] Z13.820 Health Concerns Section Related Observation LastModified by Organization Detai ls LastModified Time None Recorded Concern Status LastModified by Organization Details LastModified Time None Recorded Advance Directives Directive N: Payers Encounter Date Sequence Insurance Name Policy Number Policy Leone Covered Member ID Leone Member ID Guarantor Name 09/15/2020 1 [facility] ON OR AFTER 08/24/20 (MEDICAID REPLACEMENT - HMO) Cele Seth [id number] Cele Seth 10/16/2021 1 [facility] ON OR AFTER 08/24/20 (MEDICAID REPLACEMENT - HMO) Cele Seth [id number] Cele Seth 01/21/2024 1 [facility] ON OR AFTER 08/24/20 (MEDICAID REPLACEMENT - HMO) Cele Seth [id number] Cele Seth Notes Date Note Type Note Provider Name and Address Organization Details Recorded Time 09/15/2020 text/html Annual Rug Washer Post-MenopausalRepo rted bypatient.Menopausa l Symptoms:no menopausal symptoms; normal vaginal lubrication Vaginal Bleeding:history of menopause having occurred; no history of post menopausal bleeding Urinary Symptoms:no hematuria; no incontinence; no nocturia; no urinary frequency Vulva:no genital lesion; no vulvar atrophy Vagina:normal vaginal discharge; no vaginal atrophy Breast:no breast lump; no nipple discharge; no breast pain Sexual Complaints:no sexual complaints Psychological Symptoms:no depression; no anxiety Preventive Measures:encourage regular mammograms starting age 40; encourage self breast examination; encourage regular exercise; encourage no tobacco use; needs to schedule mammogram; history of recent colonoscopy [facility] [address], [place], [address], [facility] 09/15/2020 11:33:25 10/16/2021 text/html Annual Rug Washer Post-MenopausalRepo rted bypatient.Menopausa l Symptoms:no menopausal symptoms; normal vaginal lubrication Vaginal Bleeding:history of menopause having occurred; no history of post menopausal bleeding Urinary Symptoms:no hematuria; no incontinence; no nocturia; no urinary frequency Vulva:no genital lesion; no vulvar atrophy Vagina:normal vaginal discharge; no vaginal atrophy Breast:no breast lump; no nipple discharge; no breast pain Sexual Complaints:no sexual complaints Psychological Symptoms:no depression; no anxiety Preventive Measures:encourage regular mammograms starting age 40; encourage self breast examination; encourage regular exercise; encourage no tobacco use; mammogram performed within the past year; history of recent colonoscopy [facility] [address], [place], [address], [facility] 10/16/2021 12:49:11 01/21/2024 text/html Annual Rug Washer Post-MenopausalRepo rted bypatient.Menopausa l Symptoms:no menopausal symptoms; normal vaginal lubrication Vaginal Bleeding:history of menopause having occurred; no history of post menopausal bleeding Urinary Symptoms:no hematuria; no incontinence; no nocturia; no urinary frequency Vulva:no genital lesion; no vulvar atrophy Vagina:normal vaginal discharge; no vaginal atrophy Breast:no breast lump; no nipple discharge; no breast pain Sexual Complaints:no sexual complaints Psychological Symptoms:no depression; no anxiety Preventive Measures:encourage regular mammograms starting age 40; encourage self breast examination; encourage regular exercise; encourage no tobacco useNotes:63yowweh/o hyst 2012 (cancerous indication, pt unsure of specific diagnosis)last pap 2020 wnlmammogram last 12/2022h/o left BCcolonoscopy UTDdexa last 2020 NRACISO [facility] [address], [place], [address], [facility] 01/21/2024 13:40:08 OBGyn Episode Ob Episode Information Episode Created Date Number of Fetuses Patient Bloodtype Patient rh Status Prepregnancy Weight lbs Domestic Partner Domestic Partner Phone Father Name Supply Chain Tech Status 09/16/19 21 1 CLOSED Fetus Data First Name Last Name Admitted to NICU Weight (g) Sex Living Outcome Pediatric Complications Fetus ID Race Codes Race Delivery Type [id number] Vaginal Delivery Samson Calculation Initial Samson Date Initial Exam Date Initial Exam Provider Initial Ultrasound Date Last Menstrual Period Date Ultra Sound Weeks Gestation 0 Eighteen To Twenty Week Samson Update Ultra Sound Date Fundal Height At Umbil Quickening Date Ultra Sound Latest Weeks Gestation Final Samson Confirmed By Final Samson Confirmed Date Final Samson Date Ultra Sound Latest Days Gestation 0 0 Menstrual History Last Menstrual Date Menses Monthly On Bcp Conception Prior Menses Frequency Hcg Plus Date Menarche Onset Age Delivery Information Delivery Date Delivery Type Labor Anesthesia Weeks Gestation Incision Type Labor Labor Length Hrs Delivered By Post Complications Tubal Sterilization Discharge Date Comments 4 Discharge Information Feeding Method Contraceptive Method Maternal HG B and HCT Levels Ob Episode Information Episode Created Date Number of Fetuses Patient Bloodtype Patient rh Status Prepregnancy Weight lbs Domestic Partner Domestic Partner Phone Father Name Supply Chain Tech Status 09/16/19 21 1 CLOSED Fetus Data First Name Last Name Admitted to NICU Weight (g) Sex Living Outcome Pediatric Complications Fetus ID Race Codes Race Delivery Type [id number] Vaginal Delivery Samson Calculation Initial Samson Date Initial Exam Date Initial Exam Provider Initial Ultrasound Date Last Menstrual Period Date Ultra Sound Weeks Gestation 0 Eighteen To Twenty Week Samson Update Ultra Sound Date Fundal Height At Umbil Quickening Date Ultra Sound Latest Weeks Gestation Final Samson Confirmed By Final Samson Confirmed Date Final Samson Date Ultra Sound Latest Days Gestation 0 0 Menstrual History Last Menstrual Date Menses Monthly On Bcp Conception Prior Menses Frequency Hcg Plus Date Menarche Onset Age Delivery Information Delivery Date Delivery Type Labor Anesthesia Weeks Gestation Incision Type Labor Labor Length Hrs Delivered By Post Complications Tubal Sterilization Discharge Date Comments 0 Discharge Information Feeding Method Contraceptive Method Maternal HG B and HCT Levels Ob Episode Information Episode Created Date Number of Fetuses Patient Bloodtype Patient rh Status Prepregnancy Weight lbs Domestic Partner Domestic Partner Phone Father Name Supply Chain Tech Status 09/16/19 21 1 CLOSED Fetus Data First Name Last Name Admitted to NICU Weight (g) Sex Living Outcome Pediatric Complications Fetus ID Race Codes Race Delivery Type [id number] Vaginal Delivery Samson Calculation Initial Samson Date Initial Exam Date Initial Exam Provider Initial Ultrasound Date Last Menstrual Period Date Ultra Sound Weeks Gestation 0 Eighteen To Twenty Week Samson Update Ultra Sound Date Fundal Height At Umbil Quickening Date Ultra Sound Latest Weeks Gestation Final Samson Confirmed By Final Samson Confirmed Date Final Samson Date Ultra Sound Latest Days Gestation 0 0 Menstrual History Last Menstrual Date Menses Monthly On Bcp Conception Prior Menses Frequency Hcg Plus Date Menarche Onset Age Delivery Information Delivery Date Delivery Type Labor Anesthesia Weeks Gestation Incision Type Labor Labor Length Hrs Delivered By Post Complications Tubal Sterilization Discharge Date Comments 7 Discharge Information Feeding Method Contraceptive Method Maternal HG B and HCT Levels Ob Episode Information Episode Created Date Number of Fetuses Patient Bloodtype Patient rh Status Prepregnancy Weight lbs Domestic Partner Domestic Partner Phone Father Name Supply Chain Tech Status 09/16/19 21 1 CLOSED Fetus Data First Name Last Name Admitted to NICU Weight (g) Sex Living Outcome Pediatric Complications Fetus ID Race Codes Race Delivery Type , Spontane ous [id number] Samson Calculation Initial Samson Date Initial Exam Date Initial Exam Provider Initial Ultrasound Date Last Menstrual Period Date Ultra Sound Weeks Gestation 0 Eighteen To Twenty Week Samson Update Ultra Sound Date Fundal Height At Umbil Quickening Date Ultra Sound Latest Weeks Gestation Final Samson Confirmed By Final Samson Confirmed Date Final Samson Date Ultra Sound Latest Days Gestation 0 0 Menstrual History Last Menstrual Date Menses Monthly On Bcp Conception Prior Menses Frequency Hcg Plus Date Menarche Onset Age Delivery Information Delivery Date Delivery Type Labor Anesthesia Weeks Gestation Incision Type Labor Labor Length Hrs Delivered By Post Complications Tubal Sterilization Discharge Date Comments 9 Discharge Information Feeding Method Contraceptive Method Maternal HG B and HCT Levels
--- OUTSIDE RECORDS SUMMARY | 2024-03-30 12:53 | XMS_ITS | Referral Summary ---
Author Organization [facility] Address [address] [place] [address] Care Team Providers Care Motor Vehicle Assembly Supervisor Name Role Phone Lita Hagen Primary Care Provider Source Comments [facility],non-owned Affiliates and Associated Physician Practices is amultiple site organization consisting of ambulatory clinics and hospital sitesin [place], [place], [place] and [place]. This disclosure is being madepursuant to the Care Everywhere program and may not contain all information available regarding this patient. Last updated 17.[facility] Encounters Date Type Department Care Team Description 03/08/2024 Travel 03/08/2024 11:45 AM PHOTOGRAPHY AND PRINTS CURATOR - 03/08/2024 11:59 PM [facility] Hospital Encounter [facility] [address] [place] [address] Lita Hagen APRN-CNP Discharge Disposition: Home or Self Care from Last 3 Months Allergies No known active allergies Medications * Be aware that medications may not be up to date on this document. Alwaysverify current medications with the patient. Medication Sig Dispensed Refills Start Date End Date Status hydroCHLOROthiazide (MICROZIDE) 12.5 MG capsule TAKE 1 CAPSULE BY MOUTH ONCE DAILY IN THE MORNING 1 11/12/2018 Active Ascorbic Acid ER (Vitamin C) 500 MG capsule Vitamin C 500 mg capsule,extended release Active vitamin D3 (Cholecalciferol) 10 MCG (400 UNIT) capsule Vitamin D3 10 mcg (400 unit) capsule Active cyanocobalamin 100 MCG tablet Vitamin B-12 100 mcg tablet Active Biotin 1 MG biotin 1 mg capsule Active Active Problems Problem Noted Date Diagnosed Date History of genetic counseling 12/03/2019 Pain from breast implant 03/07/2019 History of left breast cancer 04/06/2012 Malignant neoplasm of endometrium 04/06/2012 Adenocarcinoma of endometrium, stage 1 3 Immunizations Name Administration Dates Next Due INFLUENZA VACCINE, QUADR. (A FLURIA, FLUZONE QUADRIVALENT; 6MO+) (IIV4) 12/02/2018 TDAP, HISTORIC VACCINE 05/23/2021 Social History Tobacco Use Types Packs/Day Years Used Date Smoking Tobacco: Never Smokeless Tobacco: Never Alcohol Use Standard Drinks/Week Comments Not Currently 0 (1 standard drink = 0.6 oz pur e alcohol) Sex and Gender Information Value Date Recorded Sex Assigned at Female 02/24/2024 3:23 PM PHOTOGRAPHY AND PRINTS CURATOR Gender Identity Not on file Sexual Orientation Not on file Last Filed Vital Signs Vital Sign Reading Time Taken Comments Blood Pressure 136/92 10/18/2021 1:57 PM CDT Pulse 72 10/18/2021 1:57 PM CDT Temperature 36.4 ??C (97.5 ??F) 10/18/2021 1:47 PM CD T Respiratory Rate 15 10/18/2021 1:57 PM CDT Oxygen Saturation 100% 10/18/2021 1:57 PM CDT Inhaled Oxygen Concentration 100% 10/04/2021 1 2:05 PM CDT Weight 68 kg (150 lb) 03/08/2024 12:19 PM PHOTOGRAPHY AND PRINTS CURATOR Height 154.9 cm (5' 1 ) 03/08/2024 12:19 PM PHOTOGRAPHY AND PRINTS CURATOR Body Mass Index 28.34 03/08/2024 12:19 PM PHOTOGRAPHY AND PRINTS CURATOR Plan of Treatment Not on file Medical Devices Implanted Type Area Occupational Health Physician Device Identifier Shelf Expiration Date Model / Serial / Lot Dcb00 19.5d Tecnis 1-Piece Iol Implanted:Qty: 1 on 10/04/2021 by Hawk Rodriguez MD at [facility] Left: Eye 06/15/2024 [id number] / [id number] / Tecnis 1-Piece Iol Implanted:Qty: 1 on 10/18/2021 by Hawk Rodriguez MD at [facility] Right: Eye [employer] 10/16/2023 [id number] / [id number] / Procedures Procedure Name Priority Date/Time Associated Diagnosis Comments MAMMO RIGHT SCREENING W CHESTER Routine 03/08/2024 12:19 PM PHOTOGRAPHY AND PRINTS CURATOR Screening mammogram, encounter for from Last 3 Months Results * Mammo Right Screening W Chester (03/08/2024 12:19 PM PHOTOGRAPHY AND PRINTS CURATOR) Anatomical Region Laterality Modality Breast Right Mammography 03/08/2024 2:58 PM PHOTOGRAPHY AND PRINTS CURATOR Impressions 03/08/2024 3:22 PM PHOTOGRAPHY AND PRINTS CURATOR IMPRESSION: ??Benign mammogram, without evidence of malignancy. RECOMMENDATION: ??Screening mammography in one year, pending no interval breast concerns. Patient will receive the examination results by lay letter. OVERALL ASSESSMENT: BI-RADS CATEGORY 2: BENIGN. > Dictated by Oni Ríos DO (vice president of talent acquisition). I, Amanda Dominguez MD, FACR have personally reviewed and interpreted this examination/study. > Interpreting Provider: Amanda Dominguez MD, FACR on 03/08/2024 3:22 PM Narrative 03/08/2024 3:22 PM PHOTOGRAPHY AND PRINTS CURATOR EXAMINATIONS: RIGHT DIGITAL SCREENING MAMMOGRAM AND RIGHT BREAST TOMOSYNTHESIS LOCATION: [facility] EXAM DATE: ??03/08/2024 HISTORY: ??Screening. ??History of left breast cancer, status post left mastectomy in 2006. History of right breast reduction. ??Family history of breast cancer in paternal aunt at age 60. COMPARISON : Comparison is made to prior mammograms back to 2013. TECHNIQUE: Tomosynthesis (3D) and reconstructed synthetic 2-D images acquired and reviewed in the right craniocaudal and mediolateral oblique projections. A total of 2 images obtained. Mole marker placed on the right breast Transpara AI was utilized in the interpretation. BREAST PARENCHYMAL COMPOSITION: Category B: There are scattered areas of fibroglandular density. FINDINGS: There are no suspicious findings or evidence of malignancy on mammography. Changes of breast reduction mammoplasty noted. There is no significant change from the prior. Lita Hagen GYPSUM ROOFER-[facility] MAMMO ORDERABLE S from Last 3 Months Care Teams Motor Vehicle Assembly Supervisor Relationship Specialty Start Date End Date Lita Hagen APRN-[facility] [address] [place], [place] [id number] PCP - General 11/23/18
--- OUTSIDE RECORDS SUMMARY | 2024-03-30 12:53 | XMS_ITS | Patient Health Summary ---
Author Organization [facility] Address [address] [place] [address] Care Team Providers Care Addictions Counselor Name Role Phone José MiguelLita núñez JEFF[employer] INTERN Primary Care Provider Note from [facility],non-owned Affiliates and Associated Physician Practices is amultiple site organization consisting of ambulatory clinics and hospital sitesin [place], [place], [place] and [place]. This disclosure is being madepursuant to the Care Everywhere program and may not contain all information available regarding this patient. Last updated 17.[facility] Allergies No known active allergies Medications * Be aware that medications may not be up to date on this document. Alwaysverify current medications with the patient. * hydroCHLOROthiazide (MICROZIDE) 12.5 MG capsule(Started 11/12/2018) TAKE 1 CAPSULE BY MOUTH ONCE DAILY IN THE MORNING 1 refill left * Ascorbic Acid ER (Vitamin C) 500 MG capsule Vitamin C 500 mg capsule,extended release * vitamin D3 (Cholecalciferol) 10 MCG (400 UNIT) capsule Vitamin D3 10 mcg (400 unit) capsule * cyanocobalamin 100 MCG tablet Vitamin B-12 100 mcg tablet * Biotin 1 MG biotin 1 mg capsule Active Problems Problem Noted Date Diagnosed Date History of genetic counseling 12/03/2019 Pain from breast implant 03/07/2019 History of left breast cancer 04/06/2012 Malignant neoplasm of endometrium 04/06/2012 Adenocarcinoma of endometrium, stage 1 3 Immunizations * INFLUENZA VACCINE, QUADR. (AFLURIA, FLUZONE QUADRIVALENT; 6MO+) (IIV4)(Given 12/02/2018) * TDAP, HISTORIC VACCINE(Given 05/23/2021) Social History Tobacco Use Types Packs/Day Years Used Date Smoking Tobacco: Never Smokeless Tobacco: Never Alcohol Use Standard Drinks/Week Comments Not Currently 0 (1 standard drink = 0.6 oz pur e alcohol) Sex and Gender Information Value Date Recorded Sex Assigned at Female 02/24/2024 3:23 PM CRO Gender Identity Not on file Sexual Orientation [...] 68 kg (150 lb) 03/08/2024 12:19 PM CRO Height 154.9 cm (5' 1 ) 03/08/2024 12:19 PM CRO Body Mass Index 28.34 03/08/2024 12:19 PM CRO Medical Devices Implanted Type Area Linen Controller Device Identifier Shelf Expiration Date Model / Serial / Lot Dcb00 19.5d Tecnis 1-Piece Iol Implanted:Qty: 1 on 10/04/2021 by Hawk Rodriguez MD at [facility] Left: Eye 06/15/2024 [id number] / [id number] / Tecnis 1-Piece Iol Implanted:Qty: 1 on 10/18/2021 by Hawk Rodriguez MD at [facility] Right: Eye [employer] 10/16/2023 [id number] / [id number] / Procedures * MAMMO RIGHT SCREENING W JORDY(Performed 03/08/2024) Performed for Screening mammogram, encounter for * YAG CAPSULOTOMY RIGHT EYE(Performed 11/01/2022) Performed for Right posterior capsular opacification * YAG CAPSULOTOMY LEFT EYE(Performed 10/25/2022) Performed for Left posterior capsular opacification * RETINAL ANALYSIS OCT(Performed 10/25/2022) Performed for Epiretinal membrane (ERM) of right eye * MAMMO RIGHT SCREENING W JORDY(Performed 07/15/2022) Performed for Breast cancer screening by mammogram * EXTRACTION CATARACT WITH INSERTION LENS(Performed 10/18/2021) Performed for Combined form of senile cataract of both eyes * EXTRACTION CATARACT WITH INSERTION LENS(Performed 10/04/2021) Performed for Combined form of senile cataract of both eyes * OPH IOL TEST SLU(Performed 08/08/2021) Performed for Combined form of senile cataract of both eyes * OPH OCT TEST SLU(Performed 08/08/2021) Performed for Combined form of senile cataract of both eyes * OPH CORNEAL TOPOGRAPHY TEST SLU(Performed 08/08/2021) Performed for Combined form of senile cataract of both eyes * MAMMO RIGHT SCREENING W JORDY(Performed 12/29/2020) Performed for Visit for screening mammogram * MAMMO RIGHT SCREENING(Performed 12/06/2019) Performed for History of left breast cancer * MAMMO RIGHT SCREENING(Performed 11/25/2018) Performed for Breast cancer screening * PATH CONSULT CLINICAL(Performed 04/24/2012) * PATHOLOGY/GENETICS HISTORICAL-ONBASE(Performed 04/24/2012) * PATHOLOGY/GENETICS HISTORICAL-ONBASE(Performed 04/24/2012) Results * Mammo Right Screening W Jordy (03/08/2024 12:19 PM CRO) Only the most recent of3 resultswithin the time period is included. Anatomical Region Laterality Modality Breast Right Mammography 03/08/2024 2:58 PM CRO Impressions 03/08/2024 3:22 PM CRO IMPRESSION: ??Benign mammogram, without evidence of malignancy. RECOMMENDATION: ??Screening mammography in one year, pending no interval breast concerns. Patient will receive the examination results by lay letter. OVERALL ASSESSMENT: BI-RADS CATEGORY 2: BENIGN. > Dictated by Oni Ríos DO (residential counselor). I, Amanda Dominguez MD, FACR have personally reviewed and interpreted this examination/study. > Interpreting Provider: Amanda Dominguez MD, FACR on 03/08/2024 3:22 PM Narrative 03/08/2024 3:22 PM CRO EXAMINATIONS: RIGHT DIGITAL SCREENING MAMMOGRAM AND RIGHT BREAST TOMOSYNTHESIS LOCATION: [facility] EXAM DATE: ??03/08/2024 HISTORY: ??Screening. ??History of [...] no significant change from the prior. Lita JONES MAMMO ORDERABLE S * YAG CAPSULOTOMY RIGHT EYE (11/01/2022 3:18 PM CDT) Anatomical Region Laterality Modality Head Other Narrative 11/01/2022 5:36 PM CDT Laser Note Procedure: ??YAG laser capsulotomy, Right eye. 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 Dr. Santa was present for the beckham portions of the procedure. Jorge Martinez Ophthalmology Resident, PGY-4 11/01/2022 Godfrey Santa MD OPHTHALMOLOGY SERVIC ES ORDERABLES * YAG CAPSULOTOMY LEFT EYE (10/25/2022 3:40 PM CDT) Anatomical Region Laterality Modality Head Other Narrative 10/25/2022 3:38 PM CDT Laser Note Procedure: ??YAG laser capsulotomy, Left eye. 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 ?? Dr. Allen was present for the entire procedure Torito Victoria MD Aquilino Allen MD OPHTHALMOLOGY SERVIC ES ORDERABLES * RETINAL ANALYSIS OCT (10/25/2022 2:43 PM CDT) Anatomical Region Laterality Modality Head External-Camera Photography Narrative 10/25/2022 3:40 PM CDT Nearly resolved ERM OD Aquilino Allen MD OPHTHALMOLOGY SCHED ORD W PACS * IOL Master ([employer]) (08/08/2021 2:20 PM CDT) Anatomical Region Laterality Modality Other 08/08/2021 2:20 PM CDT Hawk Rodriguez MD OPHTHALMOLOGY SERVIC ES ORDERABLES * OCT (08/08/2021 2:12 PM CDT) Anatomical Region Laterality Modality Other 08/08/2021 2:12 PM CDT Hawk Rodriguez MD OPHTHALMOLOGY SERVIC ES ORDERABLES * Corneal Topography (08/08/2021 2:07 PM CDT) Anatomical Region Laterality Modality Other 08/08/2021 2:07 PM CDT Hawk Rodriguez MD OPHTHALMOLOGY SERVIC ES ORDERABLES * MAMMO RIGHT SCREENING (12/06/2019 9:11 AM CDT) Only the most recent of2 resultswithin the time period is included. Anatomical Region Laterality Modality Breast Right Mammography 12/06/2019 9:03 AM CDT Impressions 12/06/2019 9:08 AM CDT IMPRESSION: No suspicious interval change within the right breast. The left side was not imaged due to prior mastectomy. ASSESSMENT: BI-RADS category 2, benign findings. RECOMMENDATION: ??Routine annual mammograms are recommended. These findings were discussed with the patient by Dr. Leahy. This report was electronically signed by CHUCK LEAHY M.D. ??on 12/06/2019 9:08 AM . Narrative 12/06/2019 9:08 AM CDT Unilateral diagnostic mammogram Date: ??12/06/2019 8:42 AM Comparison: Multiple priors, most recently 11/25/2018. History: ??Breast cancer. ??Previous mastectomy of the left breast in 2006 for recurrent ipsilateral breast cancer (history of left lumpectomy in 2003). History of right breast reduction. Technique: ??The right breast was imaged in multiple views using 3D tomosynthesis, synthetic/reconstructed images and CAD analysis. The left was not imaged due to prior mastectomy. Findings: No suspicious mass, grouped microcalcification or architectural distortion is seen. ??Surgical changes are noted within the right breast from breast reduction. No significant change is noted since the prior examination. Breast density: ??There are scattered areas of fibroglandular density. This examination was subjected to CAD analysis. Talia Chin MD MAMMO ORDERABLES * PATH CONSULT CLINICAL (04/24/2012 2:54 PM CRO) Pathology Consult () [facility] Comment: CLINICAL HISTORY: The patient is a 51 year-old female with postmenopausal bleeding, LMP August 2011. ??D C done 03/06/12 showed complex hyperplasia with atypia and rare parts suspicious for adenocarcinoma. ??Hysterectomy done 03/18/12 (outside hospital), showed endometrioid adenocarcinoma, with superficial invasion. FINAL DIAGNOSIS: ENDOMETRIUM, UTERUS, TOTAL ABDOMINAL HYSTERECTOMY (S13-389, A; 03/18/12): - NONINVASIVE WELL DIFFERENTIATED ENDOMETRIOID ADENOCARCINOMA, CONFINED TO THE ENDOMETRIUM, FIGO GRADE 1, FIGO STAGE 1A, NO PERINEURAL OR LYMPHOVASCULAR INVASION - COMPLEX ENDOMETRIAL HYPERPLASIA WITH ATYPIA - ADENOMYOSIS CERVIX, UTERUS, TOTAL ABDOMINAL HYSTERECTOMY (S13-389, A; 03/18/12): - NO EVIDENCE OF MALIGNANCY - PARAKERATOSIS OVARIES AND FALLOPIAN TUBES, RIGHT AND LEFT, BILATERAL SALPINGO-OOPHORECTOMY (S13-389, A; 03/18/12): - NO EVIDENCE OF MALIGNANCY - BILATERAL PARATUBAL CYSTS LYMPH NODE, RIGHT, ILIAC, EXCISION (S13-389, B; 03/18/12): - NO EVIDENCE OF MALIGNANCY (0/1 NODE) LYMPH NODE, RIGHT EXTERNAL ILIAC, EXCISION (S13-389, C; 03/18/12): - NO EVIDENCE OF MALIGNANCY (0/1 NODE) LYMPH NODE , RIGHT INTERNAL ILIAC, EXCISION (S13-389, D; 03/18/12): - NO EVIDENCE OF MALIGNANCY OR LYMPH NODE LYMPH NODE, LEFT COMMON ILIAC, EXCISION (S13-389, E; 03/18/12): - NO EVIDENCE OF MALIGNANCY (0/1 NODE) LYMPH NODE, LEFT EXTERNAL ILIAC, EXCISION (S13-389, F; 03/18/12): - NO EVIDENCE OF MALIGNANCY (0/2 NODES) LYMPH NODE , LEFT INTERNAL ILIAC, EXCISION (S13-389, G; 03/18/12): - NO EVIDENCE OF MALIGNANCY OR LYMPH NODE - BENIGN FIBROADIPOSE TISSUE MATERIALS RECEIVED: Received from [facility] [address] [address] are 6 slides labeled [id number] and 24 slides labeled [id number] . ??The identifying paperwork is also received on Celerandall Seth. ??A copy of our report will be forwarded, and all material will be returned to the institution of origin. MICROSCOPIC DESCRIPTION: Review of the uterus (A) shows a well-differentiated endometrioid adenocarcinoma with secretory features. ??The tumor is FIGO grade 1 with <5% nonsquamous cell growth pattern. ??The tumor cells have subnuclear vacuoles in memt-ca-aryh glands. ??Additionally, the uterus has complex hyperplasia with cytologic atypia and adenomyosis. ??No vascular or perineural invasion is seen. Review of the cervix (A) shows no evidence of malignancy. Parakeratosis is seen. Review of the right and left ovaries and fallopian tubes (A) show no evidence of metastasis. ??Bilateral paratubal cysts are seen. Review of the right common iliac lymph node (B) shows one benign lymph node with no evidence of metastasis. Review of the right external iliac lymph node (C) shows one benign lymph node with no evidence of metastasis. Review of the right internal iliac lymph node (D) shows benign fat and fibrous tissue. ??No lymph node is identified. Review of the left common iliac lymph node (E) shows one benign lymph node with no evidence of metastasis. Review of the left external iliac lymph node (F) shows two benign lymph nodes with no evidence of metastasis. Review of the left internal iliac lymph nodes (G) shows benign adipose tissue with adipose and fibrous tissue. SIDE PANEL PADDER/EE/met The performance characteristics of all immunohistochemical and indirect immunofluorescence stains (if any) cited in this report were determined by the [facility] of [facility] in compliance with CLIA '88 regulations. ??Some of these tests rely on the use of analyte-specific reagents and are subject to specific labeling requirements by the FDA. ??Such tests were developed by the [facility] of [facility] and have not been cleared or approved by the FDA. ??The FDA has determined that such clearance or approval is not necessary. These tests are used for clinical purposes and should not be regarded as investigational or for research. This case has been personally reviewed and interpreted by the attending (teaching) pathologist. Final Diagnosis performed by Shilpa Mccurdy MD. Electronically signed 04/27/2012 04/24/2012 2:54 PM CRO 04/24/2012 2:55 PM CRO Foreign Shabazz MD LAB - PATHOLOGY/CYTO LOGY ORDERABLES Performing Organization Address City/[facility]/ZIP Co de Phone Number [address] [phone] * PATHOLOGY/GENETICS HISTORICAL-ONBASE (04/24/2012) Only the most recent of2 resultswithin the time period is included. 04/24/2012 Narrative [facility] - 04/28/2012 12:48 PM CRO Historical Provider LAB - CHEMISTRY O RDERABLES [facility] [address] Care Teams Addictions Counselor Relationship Specialty Start Date End Date Lita Hagen APRN-SYLVIA [address] [place] [address] [phone] PCP - General 11/23/18
--- OUTSIDE RECORDS SUMMARY | 2024-03-30 12:53 | XMS_ITS | Clinical Summary ---
Author Organization [facility] Address [address] [place] [address] Care Team Providers Care Sinter Machine Operator Name Role Phone José MiguelLita núñez JEFFERY-ENGINEER TECHNICAL STAFF Primary Care Provider Source Comments [facility],non-owned Affiliates and Associated Physician Practices is amultiple site organization consisting of ambulatory clinics and hospital sitesin [place], [place], [place] and [place]. This disclosure is being madepursuant to the Care Everywhere program and may not contain all information available regarding this patient. Last updated 17.[facility] Allergies No known active allergies Medications * [...] 04/06/2012 Adenocarcinoma of endometrium, stage 1 3 Encounters Date Type Department Care Team Description 03/08/2024 11:45 AM ALIGNING CHECKER - 03/08/2024 11:59 PM ALIGNING CHECKER Hospital Encounter [address] [address] Lita Hagen APRN-ENGINEER TECHNICAL STAFF Discharge Disposition: Home or Self Care 03/08/2024 Travel from Last 3 Months Immunizations Name Administration Dates Next Due INFLUENZA VACCINE, QUADR. (A FLURIA, FLUZONE QUADRIVALENT; 6MO+) (IIV4) 12/02/2018 TDAP, HISTORIC VACCINE 05/23/2021 Family History Medical History Relation Name Comments Cancer - Other Father Diabetes - Type 2 Father COPD - Chronic Obstructive Pulmonary Disease Mother Cancer - Renal Mother Diabetes - Type 2 Mother Cancer - Breast Paternal Aunt Relation Name Status Comments Father Mother Paternal Aunt Social History Tobacco Use Types Packs/Day Years Used Date Smoking Tobacco: Never Smokeless Tobacco: Never Alcohol Use Standard Drinks/Week Comments Not Currently 0 (1 standard drink = 0.6 oz pur e alcohol) Sex and Gender Information Value Date Recorded Sex Assigned at Female 02/24/2024 3:23 PM ALIGNING CHECKER Gender Identity Not on file Sexual Orientation [...] 68 kg (150 lb) 03/08/2024 12:19 PM ALIGNING CHECKER Height 154.9 cm (5' 1 ) 03/08/2024 12:19 PM ALIGNING CHECKER Body Mass Index 28.34 03/08/2024 12:19 PM ALIGNING CHECKER Plan of Treatment Health Maintenance Due Date Last Done Comments COLOGUARD (AGES 45-75) - COLON CA SCREENING 1959 COLON MONITORING 1959 COLONOSCOPY - COLON CA SCREENING 1959 CT COLONOGRAPHY - COLON CA SCREENING 1959 Colorectal Cancer Screening 1959 FIT - COLON CA SCREENING 1959 FLEX SIG - COLON CA SCREENING 1959 LIPID TESTING 1959 HIV SCREENING 12/23/1974 HEPATITIS C SCREENING 12/19/1977 PNEUMOCOCCAL VACCINE 50+ (1 of 1 - PCV) 12/23/2009 ZOSTER VACCINE (1 of 2) 12/23/2009 COVID-19 VACCINE (1 - season) 2023 INFLUENZA VACCINE (#1) 2023 12/02/2018 DEPRESSION SCREENING 02/25/2024 MAMMOGRAM 03/08/2026 03/08/2024, 06/25, 12/29/2020, Additional history exists PAP SMEAR 01/20/2027 01/21/2024, 09/15/2020 DTAP/TDAP/TD VACCINES (2 - Td or Tdap) 05/24/2031 05/23/2021 Respiratory Syncytial Virus (RSV) Vaccine Pt: or over 60 yrs (1 - 1-dose 75+ series) 12/23/2034 HEPATITIS B VACCINE Aged Out No longe r eligible based on patient's age to complete this topic HIB VACCINE Aged Out No longer eligi ble based on patient's age to complete this topic HPV VACCINE Aged Out No longer eligi ble based on patient's age to complete this topic MENINGOCOCCAL (Group B) VACCINE Aged Out No longer eligible based on patient's age to complete this topic MENINGOCOCCAL VACCINE Aged Out No manas aditya eligible based on patient's age to complete this topic PNEUMOCOCCAL VACCINE Aged Out No long er eligible based on patient's age to complete this topic Medical Devices Implanted Type Area Waist Pleater Device Identifier Shelf Expiration Date Model / Serial / Lot [id number] 19.5d [employer] 1-Piece Iol Implanted:Qty: 1 on 10/04/2021 by Hawk Rodriguez MD at [facility] Left: Eye 06/15/2024 [id number] / [id number] / [employer]ecnis 1-Piece Iol Implanted:Qty: 1 on 10/18/2021 by Hawk Rodriguez MD at [facility] Right: Eye [employer] 10/16/2023 [id number] / [id number] / Procedures Procedure Name Priority Date/Time Associated Diagnosis Comments MAMMO RIGHT SCREENING W JORDY Routine 03/08/2024 12:19 PM ALIGNING CHECKER Screening mammogram, encounter for from Last 3 Months Results * Mammo Right Screening W Jordy (03/08/2024 12:19 PM ALIGNING CHECKER) Anatomical Region Laterality Modality Breast Right Mammography 03/08/2024 2:58 PM ALIGNING CHECKER Impressions 03/08/2024 3:22 PM ALIGNING CHECKER IMPRESSION: ??Benign mammogram, without evidence of malignancy. RECOMMENDATION: ??Screening mammography in one year, pending no interval breast concerns. Patient will receive the examination results by lay letter. OVERALL ASSESSMENT: BI-RADS CATEGORY 2: BENIGN. > Dictated by Oni Ríos DO (hvac technician residential). I, Amanda Dominguez MD, FACR have personally reviewed and interpreted this examination/study. > Interpreting Provider: Amanda Dominguez MD, FACR on 03/08/2024 3:22 PM Narrative 03/08/2024 3:22 PM ALIGNING CHECKER EXAMINATIONS: RIGHT DIGITAL SCREENING MAMMOGRAM AND RIGHT BREAST TOMOSYNTHESIS LOCATION: [facility] EXAM DATE: ??03/08/2024 HISTORY: ??Screening. ??History of [...] no significant change from the prior. Lita Holwilton OIL TESTER-ENGINEER TECHNICAL STAFF MAMMO ORDERABLE S from Last 3 Months Care Teams Sinter Machine Operator Relationship Specialty Start Date End Date Lita Hagen APRN-SYLVIA [address] [place], [place] [id number] PCP - General 11/23/18
== END 2024-03-30 12:44 | disposition home or self-care (01) ==
LOC: ANHIMG 12:47
PROVIDERS: PCP Nurse Practitioner Family; Visit Provider Nurse Practitioner
DX: Z13.820 Encounter for screening for osteoporosis (principal); M80.052A Age-related osteoporosis with current pathological fracture, left femur, initial encounter for fracture; M85.89 Other specified disorders of bone density and structure, multiple sites
CPT/HCPCS: 77080